=== PATIENT | female | born 1985 | race African-American/Black ===

== ENCOUNTER 2017-02-19 06:19 | Emergency (ER) | payer SELFPAY ==
[2017-02-19] MEDS ORDERED: NORMAL SALINE 1000 ML 1,000 ML IV ONE (07:37)
[2017-02-19] MEDS ORDERED: METOPROLOL TARTRATE 25 MG TABLET PO ONE (07:59)
--- NOTE | 2017-02-19 08:00 | ER Document Report ---
ED Cardiac - General Chief Complaint: Palpitations Stated Complaint: BLOOD PRESSURE PROBLEMS Time Seen by Provider: 02/19/17 07:08 Mode of Arrival: Ambulatory Information source: Patient Notes: Patient is a 31-year-old female with a history of high blood pressure and who presents to the ER today for high blood pressure today and palpitations. Patient states that she was in her shower and that she felt palpitations, her heart racing. Patient states that she has had this before but only when she was . She used to be on blood pressure medication, but does not have a primary care provider, so she is no longer taking any blood pressure medication. She does not remember what this medicine was. She denies any chest pain, shortness of breath, nausea or vomiting. TRAVEL OUTSIDE OF THE [place] IN LAST 30 DAYS: No - Related Data Allergies/Adverse Reactions: No Known Allergies Allergy (Verified 02/19/17 06:25) Past Medical History - General Information source: Patient - Social History Smoking Status: Never Smoker Family History: Reviewed & Not Pertinent Patient has suicidal ideation: No Patient has homicidal ideation: No - Past Medical History Cardiac Medical History: Reports: Hx Hypertension - related Renal/ Medical History: Denies: Hx Peritoneal Dialysis Past Surgical History: Reports: Hx Section - Immunizations Hx Diphtheria, Pertussis, Tetanus Vaccination: Yes Review of Systems - Review of Systems Constitutional: No symptoms reported EENT: No symptoms reported Cardiovascular: See HPI Respiratory: No symptoms reported Gastrointestinal: No symptoms reported Genitourinary: No symptoms reported Female Genitourinary: No symptoms reported Musculoskeletal: No symptoms reported Skin: No symptoms reported Hematologic/Lymphatic: No symptoms reported Neurological/Psychological: No symptoms reported Physical Exam - Vital signs Vitals: Temp Pulse Resp BP Pulse Ox 98.7 F 114 H 18 189/99 H 98 02/19/17 06:25 02/19/17 06:25 02/19/17 06:25 02/19/17 06:25 02/19/17 06:25 - Notes Notes: PHYSICAL EXAMINATION: GENERAL: Well-appearing and in no acute distress. HEAD: Atraumatic, normocephalic. EYES: Pupils equal round and reactive to light, extraocular movements intact, sclera anicteric, conjunctiva are normal. ENT: ear canals without erythema or foreign body, TMs pearly garnica with good bony landmarks, nares patent, oropharynx clear without exudates. Moist mucous membranes. NECK: Normal range of motion, supple without lymphadenopathy LUNGS: CTAB and equal. No wheezes rales or rhonchi. HEART: Tachycardic with regular rhythm without murmurs ABDOMEN: Soft, no tenderness. No guarding, no rebound BACK: no vertebral tenderness, normal ROM GI/: no CVA tenderness EXTREMITIES: Normal range of motion, no pitting edema. No cyanosis. NEUROLOGICAL: Cranial nerves grossly intact. Normal sensory/motor exams. PSYCH: Normal mood, normal affect. SKIN: Warm, Dry, normal turgor, no rashes or lesions noted Course - Re-evaluation Re-evalutation: 02/19/17 15:35 patient was mildly tachycardic on arrival, heart rate did reduce into the 70s after dose of metoprolol. Patient will be started on blood pressure medication. Normal laboratory workup today, normal cardiac enzymes, EKG reveals a normal sinus rhythm without evidence of ischemia or abnormality. - Vital Signs Vital signs: Temp Pulse Resp BP Pulse Ox 98.5 F 80 24 H 154/98 H 100 02/19/17 12:15 02/19/17 12:15 02/19/17 12:15 02/19/17 12:15 02/19/17 12:15 - Laboratory Result Diagrams: 02/19/17 11:21 02/19/17 11:21 Laboratory results interpreted by me: 02/19/17 11:21 WBC 12.1 H Hgb 11.6 L Hct 34.9 L RDW 14.6 H Absolute Neutrophils 9.0 H Discharge - Discharge Clinical Impression: Hypertension Qualifiers: Hypertension type: unspecified Qualified Code(s): I10 - Essential (primary) hypertension Condition: Stable Disposition: HOME, SELF-CARE Instructions: High Blood Pressure, Requiring Treatment ([facility]), Palpitations ( Irregular or Rapid Heartrate) ([facility]) Additional Instructions: Return immediately for any new or worsening symptoms. Follow up with primary care provider, call tomorrow to make followup appointment. Prescriptions: Hydrochlorothiazide 12.5 mg PO BID #30 tablet Referrals: JUANCARLOS BRITTON MD [Primary Care Provider] - Follow up as needed
--- NOTE | 2017-02-19 08:00 | EKG REPORT ---
SEVERITY:- ABNORMAL ECG - SINUS TACHYCARDIA CONSIDER LEFT VENTRICULAR HYPERTROPHY NONSPECIFIC ST-T CHANGES DIFFUSE : Confirmed by: Gunner Solo MD 19-Feb-2017 07:59:12
[2017-02-19 11:32] LABS: ABSOLUTE BASOPHILS # (AUTO) 0.1 10^3/uL (0.0-0.2); ABSOLUTE LYMPHOCYTES (AUTO) 2.6 10^3/uL (0.5-4.7); ABSOLUTE MONOCYTES (AUTO) 0.4 10^3/uL (0.1-1.4); BASOPHILS % (AUTO) 0.4 % (0-2); EOSINOPHILS % (AUTO) 0.2 % (0-6); HEMATOCRIT 34.9 % (36.0-47.0); HEMOGLOBIN 11.6 g/dL (12.0-15.5); HGB HCT DIFFERENCE -0.1; LYMPHOCYTES % (AUTO) 21.4 % (13-45); MEAN CORPUSCULAR HGB CONC 33.3 g/dL (32.0-36.0); MEAN CORPUSCULAR VOLUME 81 fl (80-97); MONOCYTES % (AUTO) 3.2 % (3-13); RED BLOOD COUNT 4.29 10^6/uL (3.72-5.28); RED CELL DISTRIBUTION WIDTH 14.6 % (11.5-14.0); SEGMENTED NEUTROPHILS % (AUTO) 74.8 % (42-78); WHITE BLOOD COUNT 12.1 10^3/uL (4.0-10.5)
[2017-02-19 11:55] LABS: ALANINE AMINOTRANSFERASE 23 U/L (9-52); ALKALINE PHOSPHATASE 84 U/L (38-126); ANION GAP 13 (5-19); ASPARTATE AMINO TRANSFERASE 16 U/L (14-36); BILIRUBIN,DIRECT 0.3 mg/dL (0.0-0.4); BILIRUBIN,TOTAL 0.4 mg/dL (0.2-1.3); BLOOD UREA NITROGEN 10 mg/dL (7-20); CALCIUM 9.2 mg/dL (8.4-10.2); CARBON DIOXIDE 24 mmol/L (22-30); CHLORIDE 107 mmol/L (98-107); CREATININE RESULT 0.58 mg/dL (0.52-1.25); GLUCOSE 90 mg/dL (75-110); POTASSIUM 4.1 mmol/L (3.6-5.0); SODIUM 143.8 mmol/L (137-145); TOTAL PROTEIN 7.1 g/dL (6.3-8.2)
[2017-02-19 12:16] VITALS: BP 154/98
== END 2017-02-19 12:23 | disposition home or self-care (01) ==
LOC: ER 06:19
DX: I10 Essential (primary) hypertension (principal); R00.2 Palpitations; R00.0 Tachycardia, unspecified
CPT/HCPCS: 36415; 80053; 81025; 84484; 85025; 93005; 93010; 99285

== ENCOUNTER 2017-02-20 12:01 | Emergency (ER) | payer SELFPAY ==
--- NOTE | 2017-02-20 13:01 | ER Document Report ---
ED Blood Pressure Problem - General Chief Complaint: High Blood Pressure Stated Complaint: LIGHTHEADED,SHAKY,WEAKNESS Time Seen by Provider: 02/20/17 12:56 Mode of Arrival: Ambulatory Information source: Patient Notes: Patient was seen and evaluated here yesterday. At that time she was diagnosed with uncontrolled hypertension. She was started on hydrochlorothiazide. She states she has taken 2 doses of the medication and today she "does not feel like myself". She was not able to significantly elaborate on this in the states she also did not have an appetite. She denied any nausea or vomiting. She denies any pain. She denied being dizzy. Peers makes symptoms better or worse. They are constant. They are mild to moderate. TRAVEL OUTSIDE OF THE [place] IN LAST 30 DAYS: No - Related Data Allergies/Adverse Reactions: No Known Allergies Allergy (Verified 02/19/17 06:25) Past Medical History - General Information source: Patient - Social History Smoking Status: Current Some Day Smoker Chew tobacco use (# tins/day): No Frequency of alcohol use: Occasional Drug Abuse: None Family History: Reviewed & Not Pertinent Patient has suicidal ideation: No Patient has homicidal ideation: No - Past Medical History Cardiac Medical History: Reports: Hx Hypertension - related Renal/ Medical History: Denies: Hx Peritoneal Dialysis Past Surgical History: Reports: Hx Section - Immunizations Hx Diphtheria, Pertussis, Tetanus Vaccination: Yes Review of Systems - Review of Systems Constitutional: denies: Chills, Fever Cardiovascular: denies: Chest pain, Palpitations Respiratory: denies: Cough, Short of breath Gastrointestinal: denies: Abdominal pain, Vomiting Physical Exam - Vital signs Vitals: Temp Pulse Resp BP Pulse Ox 98.8 F 84 20 168/108 H 100 02/20/17 12:19 02/20/17 12:19 02/20/17 12:19 02/20/17 12:19 02/20/17 12:19 Interpretation: Hypertensive - General General appearance: Appears well In distress: None Course - Re-evaluation Re-evalutation: 02/20/17 12:59 We will change patient's blood pressure medication to Norvasc in case the patient's "not feeling like myself "is due to the hydrochlorothiazide. - Vital Signs Vital signs: Temp Pulse Resp BP Pulse Ox 98.8 F 84 20 168/108 H 100 02/20/17 12:19 02/20/17 12:19 02/20/17 12:19 02/20/17 12:19 02/20/17 12:19 Discharge - Discharge Clinical Impression: Uncontrolled hypertension Medication reaction Qualifiers: Encounter type: initial encounter Qualified Code(s): T88.7XXA - Unspecified adverse effect of drug or medicament, initial encounter Condition: Stable Disposition: HOME, SELF-CARE Instructions: High Blood Pressure ([facility]), High Blood Pressure, Requiring Treatment ([facility]), Calcium Channel Blockers ([facility]) Additional Instructions: Your blood pressure is elevated. Please have this rechecked within 1 week by your doctor. Prescriptions: Amlodipine Besylate [Norvasc 5 mg Tablet] 5 mg PO DAILY #30 tablet Forms: Return to Work Referrals: ROMA ROBLERO MD [COMMUNITY BASED STAFF] - Follow up as needed
[2017-02-20 13:19] VITALS: BP 187/103
== END 2017-02-20 13:28 | disposition home or self-care (01) ==
LOC: ER 12:01
DX: I10 Essential (primary) hypertension (principal); R63.0 Anorexia; T50.2X5A Adverse effect of carbonic-anhydrase inhibitors, benzothiadiazides and other diuretics, initial encounter; F17.200 Nicotine dependence, unspecified, uncomplicated
CPT/HCPCS: 99283

== ENCOUNTER 2017-03-01 16:33 | Emergency (ER) | payer SELFPAY ==
[2017-03-01 17:07] VITALS: BP 147/89
--- NOTE | 2017-03-01 18:39 | ER Document Report ---
ED General - General Chief Complaint: Blood Pressure Problem Stated Complaint: BLOOD PRESSURE PROBLEM Time Seen by Provider: 03/01/17 18:30 Notes: 31-year-old female past medical history high blood pressure here for follow-up and recheck of her blood pressure after she was seen here in late January and switched from hydrochlorothiazide (that made her feel bad) to Norvasc. She states that she feels much better on the Norvasc and does not have any symptoms so she wants to come have her blood pressure checked. She has submitted her paperwork to establish care with a primary care physician but has not yet completed the whole process. TRAVEL OUTSIDE OF THE [place] IN LAST 30 DAYS: No - Related Data Allergies/Adverse Reactions: No Known Allergies Allergy (Verified 03/01/17 16:35) Past Medical History - Social History Smoking Status: Never Smoker Chew tobacco use (# tins/day): No Frequency of alcohol use: Occasional Drug Abuse: None Family History: Reviewed & Not Pertinent Patient has suicidal ideation: No Patient has homicidal ideation: No - Past Medical History Cardiac Medical History: Reports: Hx Hypertension - related Renal/ Medical History: Denies: Hx Peritoneal Dialysis Past Surgical History: Reports: Hx Section - Immunizations Hx Diphtheria, Pertussis, Tetanus Vaccination: Yes Review of Systems - Review of Systems Notes: See history of present illness for pertinent positive review of systems; otherwise all review of systems have been reviewed and are negative Physical Exam - Vital signs Vitals: Temp Pulse Resp BP Pulse Ox 97.9 F 100 12 147/89 H 100 03/01/17 17:05 03/01/17 17:05 03/01/17 17:05 03/01/17 17:05 03/01/17 17:05 - Notes Notes: PHYSICAL EXAMINATION: GENERAL: Well-appearing and in no acute distress. HEAD: Atraumatic, normocephalic. EYES: Pupils equal round and reactive to light, extraocular movements intact, sclera anicteric, conjunctiva are normal. ENT: nares patent, Moist mucous membranes. NECK: Normal range of motion, supple without lymphadenopathy LUNGS: CTAB and equal. No wheezes rales or rhonchi. HEART: Regular rate and rhythm without murmurs ABDOMEN: Soft, no tenderness. No guarding, no rebound EXTREMITIES: Normal range of motion, no pitting edema. No cyanosis. NEUROLOGICAL: Cranial nerves grossly intact. Normal sensory/motor exams. PSYCH: Normal mood, normal affect. SKIN: Warm, Dry, normal turgor, no rashes or lesions noted Course - Re-evaluation Re-evalutation: 03/01/17 18:37 MEDICAL DECISION MAKING: Blood pressure has improved compared to the last reading from prior ED visit Instructed patient to continue her blood pressure medication and follow-up PCP few days Patient understands and agrees to the plan of care - Vital Signs Vital signs: Temp Pulse Resp BP Pulse Ox 97.9 F 100 12 147/89 H 100 03/01/17 17:05 03/01/17 17:05 03/01/17 17:05 03/01/17 17:05 03/01/17 17:05 Discharge - Discharge Clinical Impression: Hypertension Qualifiers: Hypertension type: unspecified Qualified Code(s): I10 - Essential (primary) hypertension Condition: Good Disposition: HOME, SELF-CARE Additional Instructions: Continue your blood pressure medications. You were seen in the emergency department at [facility]. Please followup with your primary physician in the next few days for further management/evaluation. Please return to the emergency department for worsening of symptoms or any symptom that you deem to be concerning or life-threatening. Thank you for allowing us to be part of your care. Forms: Elevated Blood Pressure
== END 2017-03-01 18:41 | disposition home or self-care (01) ==
LOC: ER 16:33
DX: I10 Essential (primary) hypertension (principal); Z79.899 Other long term (current) drug therapy
CPT/HCPCS: 99283

== ENCOUNTER 2017-03-22 15:26 | Emergency (ER) | payer SELFPAY ==
[2017-03-22 15:41] VITALS: BP 148/91
--- NOTE | 2017-03-22 16:00 | ER Document Report ---
ED General - General Chief Complaint: Medication Refill Stated Complaint: MEDICATION REFILL Time Seen by Provider: 03/22/17 15:50 Mode of Arrival: Ambulatory Information source: Patient Notes: Patient is a 31-year-old obese black female comes emergency room with request for refill of hypertension medication. Patient was seen in January for original blood pressure problem where she had been placed on hydrochlorothiazide and she was feeling weird with that so she came in she was changed in January 2 amlodipine 5 mg daily. She will return in February just for blood pressure rechecked to make sure that amlodipine is working physician saw her at that point documented that she was doing much better on the Norvasc and that she had started the paperwork for her primary care physician but has not finished yet. There were no refills at that time and she comes back today because [facility] care in her health. Patient denies any current problems no shortness of breath no swelling TRAVEL OUTSIDE OF THE [place] IN LAST 30 DAYS: No - HPI Patient complains to provider of: Medication refill Onset: Other - 1 month Onset/Duration: Constant Quality of pain: No pain Severity: None Pain Level: 0 Associated symptoms: None Exacerbated by: Denies Relieved by: Denies Similar symptoms previously: Yes Recently seen / treated by doctor: Yes - Related Data Allergies/Adverse Reactions: No Known Allergies Allergy (Verified 03/01/17 16:35) Past Medical History - General Information source: Patient - Social History Smoking Status: Never Smoker Cigarette use (# per day): No Chew tobacco use (# tins/day): No Smoking Education Provided: No Frequency of alcohol use: None Drug Abuse: None Family History: Reviewed & Not Pertinent Patient has suicidal ideation: No Patient has homicidal ideation: No - Past Medical History Cardiac Medical History: Reports: Hx Hypertension - related Renal/ Medical History: Denies: Hx Peritoneal Dialysis Past Surgical History: Reports: Hx Section - Immunizations Hx Diphtheria, Pertussis, Tetanus Vaccination: Yes Review of Systems - Review of Systems Constitutional: No symptoms reported EENT: No symptoms reported Cardiovascular: No symptoms reported Respiratory: No symptoms reported Gastrointestinal: No symptoms reported Genitourinary: No symptoms reported Female Genitourinary: No symptoms reported Musculoskeletal: No symptoms reported Skin: No symptoms reported Hematologic/Lymphatic: No symptoms reported Neurological/Psychological: No symptoms reported -: Yes All other systems reviewed and negative Physical Exam - Vital signs Vitals: Temp Pulse Resp BP Pulse Ox 98.5 F 85 20 148/91 H 100 03/22/17 15:41 03/22/17 15:41 03/22/17 15:41 03/22/17 15:41 03/22/17 15:41 Interpretation: Hypertensive - General General appearance: Appears well In distress: None - Respiratory Respiratory status: No respiratory distress Chest status: Nontender Breath sounds: Normal - Cardiovascular Rhythm: Regular Heart sounds: Normal auscultation Murmur: No - Neurological Neuro grossly intact: Yes Cognition: Normal Orientation: AAOx4 Marco A Coma Scale Eye Opening: Spontaneous Marco A Coma Scale Verbal: Oriented Blakeslee Coma Scale Motor: Obeys Commands Marco A Coma Scale Total: 15 Speech: Normal Course - Vital Signs Vital signs: Temp Pulse Resp BP Pulse Ox 98.5 F 85 20 148/91 H 100 03/22/17 15:41 03/22/17 15:41 03/22/17 15:41 03/22/17 15:41 03/22/17 15:41 - Transfer of Care Notes: 03/22/17 15:59 As stated [facility] for to establish with them for her medical needs. Discharge - Discharge Clinical Impression: Medication refill Condition: Good Additional Instructions: Since you are here for medication refill and to inform you that really need to keep the appointment with the [facility] to establish for your long-term medical needs and prescriptions. Should you have any concerns or problems unable to do so return to ER for recheck. Prescriptions: Amlodipine Besylate 10 mg PO DAILY #30 tab Forms: Elevated Blood Pressure
== END 2017-03-22 16:10 | disposition home or self-care (01) ==
LOC: ER 15:26
DX: Z76.0 Encounter for issue of repeat prescription (principal); I10 Essential (primary) hypertension
CPT/HCPCS: 99281

== ENCOUNTER 2017-04-19 02:31 | Emergency (ER) | payer SELFPAY ==
[2017-04-19 04:35] VITALS: BP 139/90
--- NOTE | 2017-04-19 06:33 | ER Document Report ---
ED General - General Chief Complaint: Chest Tightness Stated Complaint: CHEST PAIN Time Seen by Provider: 04/19/17 06:07 Mode of Arrival: Ambulatory Information source: Patient Notes: 31-year-old female presents with complaints of sharp chest pain in the left upper chest intermittently. Patient notes she has had these symptoms in the past, admits to anxiety, notes she has tingling of lips fingertips when these occur. She noticed the sharp pain lasts only a few seconds. She denies any DVT or PE risk factors. She denies any cough. She denies any shortness of breath. TRAVEL OUTSIDE OF THE [place] IN LAST 30 DAYS: No - HPI Onset: Other Onset/Duration: Intermittent Quality of pain: Sharp Severity: Mild Pain Level: 1 Associated symptoms: Chest pain Exacerbated by: Denies Relieved by: Denies Similar symptoms previously: Yes Recently seen / treated by doctor: No - Related Data Allergies/Adverse Reactions: No Known Allergies Allergy (Verified 04/19/17 02:40) Past Medical History - Social History Smoking Status: Never Smoker Cigarette use (# per day): No Chew tobacco use (# tins/day): No Smoking Education Provided: No Frequency of alcohol use: None Drug Abuse: None Family History: Reviewed & Not Pertinent Patient has suicidal ideation: No Patient has homicidal ideation: No - Past Medical History Cardiac Medical History: Reports: Hx Hypertension - related Renal/ Medical History: Denies: Hx Peritoneal Dialysis Past Surgical History: Reports: Hx Section - Immunizations Hx Diphtheria, Pertussis, Tetanus Vaccination: Yes Review of Systems - Review of Systems Notes: REVIEW OF SYSTEMS: CONSTITUTIONAL : Denies fever, chills, or sweats. Denies recent illness. EENT: Denies eye, ear, throat, or mouth pain or symptoms. Denies nasal or sinus congestion or discharge. Denies throat, tongue, or mouth swelling or difficulty swallowing. CARDIOVASCULAR: Admits to chest pain RESPIRATORY: Denies cough, cold, or chest congestion. Denies shortness of breath, difficulty breathing, or wheezing. GASTROINTESTINAL: Denies abdominal pain or distention. Denies nausea, vomiting , or diarrhea. Denies blood in vomitus, stools, or per rectum. Denies black, tarry stools. Denies constipation. GENITOURINARY: Denies difficulty urinating, painful urination, burning, frequency, blood in urine, or discharge. FEMALE GENITOURINARY: Denies vaginal bleeding, heavy or abnormal periods, irregular periods. Denies vaginal discharge or odor. MUSCULOSKELETAL: Denies back or neck pain or stiffness. Denies joint pain or swelling. SKIN: Denies rash, lesions or sores. HEMATOLOGIC : Denies easy bruising or bleeding. LYMPHATIC: Denies swollen, enlarged glands. NEUROLOGICAL: Denies confusion or altered mental status. Denies passing out or loss of consciousness. Denies dizziness or lightheadedness. Denies headache. Denies weakness or paralysis or loss of use of either side. Denies problems with gait or speech. Denies sensory loss, numbness, or tingling. Denies seizures. PSYCHIATRIC: Admits to anxiety n. ALL OTHER SYSTEMS REVIEWED AND NEGATIVE. PHYSICAL EXAMINATION: GENERAL: Well-appearing, well-nourished and in no acute distress. HEAD: Atraumatic, normocephalic. EYES: Pupils equal round and reactive to light, extraocular movements intact, conjunctiva are normal. ENT: Nares patent, oropharynx clear without exudates. Moist mucous membranes. NECK: Normal range of motion, supple without lymphadenopathy LUNGS: Breath sounds clear to auscultation bilaterally and equal. No wheezes rales or rhonchi. HEART: Regular rate and rhythm without murmurs ABDOMEN: Soft, nontender, nondistended abdomen. No guarding, no rebound. No masses appreciated. Female : deferred Musculoskeletal: Normal range of motion, no pitting or edema. No cyanosis. NEUROLOGICAL: Cranial nerves grossly intact. Normal speech, normal gait. Normal sensory, motor exams PSYCH: Normal mood, normal affect. SKIN: Warm, Dry, normal turgor, no rashes or lesions noted. Dictation was performed using [employer] voice recognition software Physical Exam - Vital signs Vitals: Temp Pulse Resp BP Pulse Ox 98.8 F 100 18 136/80 H 100 04/19/17 02:43 04/19/17 02:43 04/19/17 02:43 04/19/17 02:43 04/19/17 02:43 Course - Re-evaluation Re-evalutation: 04/19/17 09:31 EKG noted no significant abnormality patient looks extremely well, we discussed her pain and it appears to be noncardiac in nature, patient is convinced that this is secondary to anxiety and I agree with her I will given very strict return precautions After performing a Medical Screening Examination, I estimate there is LOW risk for RUPTURED ESOPHAGUS, PNEUMOTHORAX, PULMONARY EMBOLISM, ACUTE CORONARY SYNDROME, OR THORACIC AORTIC DISSECTION, thus I consider the discharge disposition reasonable. I have reevaluated this patient multiple times and no significant life threatening changes are noted. The patient and I have discussed the diagnosis and risks, and we agree with discharging home with close follow-up. We also discussed returning to the Emergency Department immediately if new or worsening symptoms occur. We have discussed the symptoms which are most concerning (e.g., bloody sputum, worsening pain or shortness of breath) that necessitate immediate return. - Vital Signs Vital signs: Temp Pulse Resp BP Pulse Ox 98.5 F 79 16 139/90 H 100 04/19/17 04:00 04/19/17 04:00 04/19/17 04:00 04/19/17 04:00 04/19/17 04:00 - EKG Interpretation by Me EKG shows normal: Sinus rhythm, Posey, Intervals, QRS Complexes Discharge - Discharge Clinical Impression: Anxiety Chest pain Qualifiers: Chest pain type: unspecified Qualified Code(s): R07.9 - Chest pain, unspecified Condition: Stable Disposition: HOME, SELF-CARE Instructions: Chest Pain of Unclear Cause ([facility]) Additional Instructions: Follow up with your physician tomorrow for further care or return to the ED IMMEDIATELY if symptoms worsen or new concerns occur. If you cannot afford to follow up with your primary care physician a list of low cost clinics have been provided at the end of your discharge papers as well. Prescriptions: Amlodipine Besylate 10 mg PO DAILY #30 tab Forms: Return to Work
--- NOTE | 2017-04-19 07:40 | EKG REPORT ---
SEVERITY:- OTHERWISE NORMAL ECG - SINUS TACHYCARDIA : Confirmed by: Ni Blanco MD 19-Apr-2017 07:40:25
== END 2017-04-19 06:53 | disposition home or self-care (01) ==
LOC: ER 02:31
DX: R07.9 Chest pain, unspecified (principal); F41.9 Anxiety disorder, unspecified
CPT/HCPCS: 93005; 93010; 99285

== ENCOUNTER 2017-05-26 11:35 | Emergency (ER) | payer SELFPAY ==
--- NOTE | 2017-05-26 12:32 | ER Document Report ---
ED Medical Screen (RME) - General Chief Complaint: Chest Pain Stated Complaint: CHEST PAIN Time Seen by Provider: 05/26/17 12:32 Notes: Patient says that her chest was feeling "weird" and that she was having cramps across the front of her chest this morning. She took her blood pressure and it was 167/190. We pointed out to her that that is not a accurate reading. Patient says she has had similar symptoms to this in the past and been diagnosed with anxiety. Since January, the patient has been here 6 times. All of them for similar symptoms, the first being for her heart racing. She has been documented to have a low grade tachycardia on previous visits. Has never had her thyroid checked. Does have a history of high blood pressure on amlodipine 10 mg. Denies use of any illicit drugs, or [id number] medications. Heart rate by me at triage is 100. Heart sounds are normal. No murmur heard. TRAVEL OUTSIDE OF THE [place] IN LAST 30 DAYS: No - Related Data Allergies/Adverse Reactions: No Known Allergies Allergy (Verified 05/26/17 11:38) Past Medical History - Past Medical History Cardiac Medical History: Reports: Hx Hypertension - related Renal/ Medical History: Denies: Hx Peritoneal Dialysis Past Surgical History: Reports: Hx Section - Immunizations Hx Diphtheria, Pertussis, Tetanus Vaccination: Yes Physical Exam - Vital signs Vitals: Temp Pulse Resp BP Pulse Ox 99.4 F 109 H 17 148/80 H 100 05/26/17 11:49 05/26/17 11:49 05/26/17 11:49 05/26/17 11:49 05/26/17 11:49 Course - Vital Signs Vital signs: Temp Pulse Resp BP Pulse Ox 99.4 F 109 H 17 148/80 H 100 05/26/17 11:49 05/26/17 11:49 05/26/17 11:49 05/26/17 11:49 05/26/17 11:49
--- NOTE | 2017-05-26 13:12 | ER Document Report ---
ED General - General Chief Complaint: Chest Pain Stated Complaint: CHEST PAIN Time Seen by Provider: 05/26/17 12:32 Mode of Arrival: Ambulatory Information source: Patient TRAVEL OUTSIDE OF THE [place] IN LAST 30 DAYS: No - HPI Notes: 31-year-old female presents today with complaints of having high blood pressure when she checked her blood pressure at home as well as "feeling weird in my chest" that started today after she checked her blood pressure at home where the diastolic number was at 180. Patient states this is what made her come to the emergency room today States episode lasted for about 10 minutes and went away. Denies any radiation of pain. States pain was just "weird" unable to describe if it was sharp, shooting, throbbing achy. Patient has been sexually active with her boyfriend, they do not use any barrier methods or prevention. Patient has a long-standing history of hypertension and anxiety, does take hypertensive medications at home as directed, does not take any anxiety medications at home. Patient is unsure if her blood pressure cuff is accurate because she states it was "small". she does have a history of anxiety, patient does not have a primary care doctor or a therapist. Denies any suicidal or homicidal ideation. denies fevers, chills,palpitations, shortness of breath, dyspnea, nausea, vomiting, diarrhea, abdominal pain, hematuria, blurred vision, double vision, loss of vision, speech changes, LH, dizziness, syncope, headaches, wheezing, ST, URI, neck pain, weakness, bowel or bladder dysfunction, saddle anesthesia, numbness or tingling in bilateral upper or lower extremities equally, muscle paralysis, weakness in bilateral upper or lower extremities equally or rash. Denies IV drug use. - Related Data Allergies/Adverse Reactions: No Known Allergies Allergy (Verified 05/26/17 11:38) Past Medical History - General Information source: Patient - Social History Smoking Status: Never Smoker Frequency of alcohol use: None Drug Abuse: None Family History: Reviewed & Not Pertinent Patient has suicidal ideation: No Patient has homicidal ideation: No - Past Medical History Cardiac Medical History: Reports: Hx Hypertension - related Renal/ Medical History: Denies: Hx Peritoneal Dialysis Past Surgical History: Reports: Hx Section - Immunizations Hx Diphtheria, Pertussis, Tetanus Vaccination: Yes Review of Systems - Review of Systems Notes: REVIEW OF SYSTEMS: CONSTITUTIONAL : Denies fever, chills, or sweats. Denies recent illness. EENT: Denies eye, ear, throat, or mouth pain or symptoms. Denies nasal or sinus congestion or discharge. Denies throat, tongue, or mouth swelling or difficulty swallowing. CARDIOVASCULAR: reports chest pain. Denies palpitations or racing or irregular heart beat. Denies ankle edema. RESPIRATORY: Denies cough, cold, or chest congestion. Denies shortness of breath, difficulty breathing, or wheezing. GASTROINTESTINAL: Denies abdominal pain or distention. Denies nausea, vomiting , or diarrhea. Denies blood in vomitus, stools, or per rectum. Denies black, tarry stools. Denies constipation. GENITOURINARY: Denies difficulty urinating, painful urination, burning, frequency, blood in urine, or discharge. FEMALE GENITOURINARY: Denies vaginal bleeding, heavy or abnormal periods, irregular periods. Denies vaginal discharge or odor. MUSCULOSKELETAL: Denies back or neck pain or stiffness. Denies joint pain or swelling. SKIN: Denies rash, lesions or sores. HEMATOLOGIC : Denies easy bruising or bleeding. LYMPHATIC: Denies swollen, enlarged glands. NEUROLOGICAL: Denies confusion or altered mental status. Denies passing out or loss of consciousness. Denies dizziness or lightheadedness. Denies headache. Denies weakness or paralysis or loss of use of either side. Denies problems with gait or speech. Denies sensory loss, numbness, or tingling. Denies seizures. PSYCHIATRIC: reports anxiety or stress. Denies depression, suicidal ideation, or homicidal ideation. ALL OTHER SYSTEMS REVIEWED AND NEGATIVE. Physical Exam - Vital signs Vitals: Temp Pulse Resp BP Pulse Ox 99.4 F 109 H 17 148/80 H 100 05/26/17 11:49 05/26/17 11:49 05/26/17 11:49 05/26/17 11:49 05/26/17 11:49 - Notes Notes: PHYSICAL EXAMINATION: GENERAL: Well-appearing, well-nourished and in no acute distress. HEAD: Atraumatic, normocephalic. EYES: Pupils equal round and reactive to light, extraocular movements intact, conjunctiva are normal. ENT: Nares patent, oropharynx clear without exudates. Moist mucous membranes. NECK: Normal range of motion, supple without lymphadenopathy LUNGS: Breath sounds clear to auscultation bilaterally and equal. No wheezes rales or rhonchi. HEART: Regular rate and rhythm without murmurs ABDOMEN: Soft, nontender, nondistended abdomen. No guarding, no rebound. No masses appreciated. Female : deferred Musculoskeletal: Normal range of motion, no pitting or edema. No cyanosis. NEUROLOGICAL: Cranial nerves grossly intact. Normal speech, normal gait. Normal sensory, motor exams PSYCH: teary-eyed and appears anxious. Normal mood, normal affect. SKIN: Warm, Dry, normal turgor, no rashes or lesions noted. Dictation was performed using [employer] voice recognition software Course - Re-evaluation Re-evalutation: Reevaluated patient, patient states she felt better. CBC unremarkable for any leukocytosis, cardiac enzymes are negative. CMP is unremarkable. EKG showed tachycardic at 113 bpm, significant changes from previous EKG. Patient was very emotional when talking. Discussed anxiety reducing techniques. Patient is unable to be seen by her PCP this time due to having issues with her insurance. Discussed with patient to utilize outpatient therapy resources in the community that is free. Research study with multiple places with their address and number provided. Patient does show to have nitrates in her urine, will do further evaluation to evaluate for GC, wet mount. Advised patient to not drink alcohol or take his medication as it will make her feel very ill. Treat with Flagyl for bacterial vaginosis. Follow-up with PCP at the [facility] or return to the emergency room if symptoms become worse. - Vital Signs Vital signs: Temp Pulse Resp BP Pulse Ox 99.1 F 72 16 146/85 H 100 05/26/17 15:15 05/26/17 15:15 05/26/17 15:15 05/26/17 15:15 05/26/17 15:15 - Laboratory Result Diagrams: 05/26/17 12:57 05/26/17 12:57 Laboratory results interpreted by me: 05/26/17 05/26/17 12:57 12:57 WBC 11.3 H Hgb 11.8 L Hct 35.6 L RDW 14.4 H Urine Nitrite POSITIVE H Urine Urobilinogen 2.0 H - EKG Interpretation by Me Rate: Tachycardia Rhythm: NSR Additional EKG results interpreted by me: 05/26/17 15:[address] Zee, ER attending. EKG does not show any significant changes from previous EKGs, one that was done in March 1999 14,026 as well as one that was done one year prior. There is nonspecific ST segment abnormalities. No STEMI. Discharge - Discharge Clinical Impression: Bacterial vaginosis, Anxiety Hypertension Qualifiers: Hypertension type: essential hypertension Qualified Code(s): I10 - Essential ( primary) hypertension Condition: Good Disposition: HOME, SELF-CARE Instructions: Anxiety ([facility]), High Blood Pressure ([facility]), Vaginosis, Bacterial ( [facility]) Additional Instructions: VAGINITIS: Your exam shows that you have vaginitis, a vaginal infection. The infection can be caused by a many different organisms, including trichomonas or Gardnerella. The usual symptoms are vaginal irritation and discharge. The treatment is usually antibiotics such as Flagyl. Laboratory tests can determine which germ is responsible. Use the medication as prescribed. Because this infection can be transmitted sexually, your sexual partner may need to be checked and treated also. If your physician has not discussed this with you, please check before resuming sexual relations. If a culture shows gonorrhea or chlamydia, the infection must be reported to the health department. Call the doctor if you develop pelvic pain, fever, or problems with urination, or if you don't improve as expected. VAGINOSIS, BACTERIAL: Your exam shows you have bacterial vaginosis. This condition is due to an overgrowth of bacteria in the vagina. Symptoms may include vaginal itching or pain, a smelly discharge, and sometimes burning with urination. Normally this is not transmitted by sexual contact. Vaginosis can be treated with oral or topical antibiotics. Metronidazole ( Flagyl) pills are usually effective. Topical vaginal creams include Cleocin and Metro-Gel. You should avoid sexual contact until your symptoms are all better. Call the doctor if you develop pelvic pain, fever, or problems with urination, or if you don't improve as expected. VAGINAL YEAST INFECTION: METRONIDAZOLE: Metronidazole (Flagyl) has been prescribed. This medication is used to kill a type of bacteria called anaerobes, and protozoan parasites such as trichomonas and Giardia. Flagyl often causes a metallic taste in the mouth and mild nausea. Do not use alcohol in any form with Flagyl (including alcohol in medication elixirs). Flagyl interacts with alcohol to cause flushing, palpitations, headache, stomach cramps, and vomiting. Do not use Flagyl if you are taking Antabuse (disulfiram). Call the doctor at once if you develop rash, shortness of breath, itching, or lightheadedness. FOLLOW-UP CARE: If you have been referred to a physician for follow-up care, call the physician s office for an appointment as you were instructed or within the next two days. If you experience worsening or a significant change in your symptoms, notify the physician immediately or return to the Emergency Department at any time for re-evaluation. Anxiety The physician feels that some of your health problems are being caused by anxiety. Anxiety affects your health in many ways. Anxiety alone can cause palpitations, sweats, chest pains, abdominal pains, shortness of breath, and headaches. It contributes to ulcer disease, high blood pressure, irritable bowel syndrome, and has been shown to cause flare-ups of many other diseases. Anxiety is not a simple disorder to treat. If the anxiety is due to recent life stresses, you may simply need time to "work through" the changes. If the anxiety is due to an underlying unhappiness with yourself or due to psychiatric disturbance, professional help will be needed. Your physician can refer you for further help if needed. Anti-anxiety medication is occasionally given if the stress is acute or if you are having trouble sleeping. Chronic or frequent use of these medications is not a good idea because the body becomes reliant on it, preventing you from dealing with life's normal stresses. Follow-up with your PCP or follow-up with community care clinic within 1 week. If symptoms become worse return to the emergency room as soon as possible. Do not drink alcohol while taking Flagyl as it will make you feel violently ill. Reach Out to community therapy resources that was provided to you with name, number and address within this week. Return immediately for any new or worsening symptoms. Follow up with primary care provider, call tomorrow to make followup appointment. Prescriptions: Amlodipine Besylate 10 mg PO DAILY #30 tab Metronidazole 500 mg PO BID #14 tablet Referrals: MARCUS PINK MD [COMMUNITY BASED STAFF] - Follow up in 3-5 days AARTI DONOHUE MD [EMERITUS] - Follow up in 3-5 days
[2017-05-26 13:18] LABS: ABSOLUTE BASOPHILS # (AUTO) 0.1 10^3/uL (0.0-0.2); ABSOLUTE EOSINOPHILS # (AUTO) 0.1 10^3/uL (0.0-0.6); ABSOLUTE LYMPHOCYTES (AUTO) 2.6 10^3/uL (0.5-4.7); ABSOLUTE MONOCYTES (AUTO) 0.6 10^3/uL (0.1-1.4); ABSOLUTE NEUT (AUTO) 7.9 10^3/uL (1.7-8.2); BASOPHILS % (AUTO) 0.7 % (0-2); EOSINOPHILS % (AUTO) 0.8 % (0-6); HEMATOCRIT 35.6 % (36.0-47.0); HEMOGLOBIN 11.8 g/dL (12.0-15.5); LYMPHOCYTES % (AUTO) 22.9 % (13-45); MEAN CORPUSCULAR HEMOGLOBIN 27.4 pg (27.0-33.4); MEAN CORPUSCULAR HGB CONC 33.1 g/dL (32.0-36.0); MEAN CORPUSCULAR VOLUME 83 fl (80-97); MONOCYTES % (AUTO) 5.4 % (3-13); PLATELET COUNT 316 10^3/uL (150-450); RED CELL DISTRIBUTION WIDTH 14.4 % (11.5-14.0); SEGMENTED NEUTROPHILS % (AUTO) 70.2 % (42-78); TOTAL CELLS COUNTED % (AUTO) 100 %; WHITE BLOOD COUNT 11.3 10^3/uL (4.0-10.5)
[2017-05-26 13:31] LABS: APPEARANCE,URINE SLIGHTLY-CLOUDY; BILIRUBIN,URINE NEGATIVE (NEGATIVE); COLOR,URINE YELLOW; GLUCOSE, URINE NEGATIVE (NEGATIVE); KETONES,URINE NEGATIVE (NEGATIVE); LEUKOCYTE ESTERASE,URINE NEGATIVE (NEGATIVE); NITRITE,URINE POSITIVE (NEGATIVE); PROTEIN,URINE NEGATIVE (NEGATIVE); URINE SPECIFIC GRAVITY 1.019
[2017-05-26 13:37] LABS: URINE AMPHETAMINES SCREEN NEGATIVE; URINE BARBITURATES SCREEN NEGATIVE; URINE BENZODIAZEPINES SCREEN NEGATIVE; URINE COCAINE SCREEN NEGATIVE; URINE MARIJUANA (THC) SCREEN NEGATIVE; URINE METHADONE SCREEN NEGATIVE; URINE PHENCYCLIDINE SCREEN NEGATIVE
[2017-05-26 13:38] LABS: ALANINE AMINOTRANSFERASE 16 U/L (9-52); ALBUMIN 4.5 g/dL (3.5-5.0); ALKALINE PHOSPHATASE 86 U/L (38-126); ANION GAP 12 (5-19); ASPARTATE AMINO TRANSFERASE 26 U/L (14-36); BILIRUBIN,DIRECT 0.1 mg/dL (0.0-0.4); BILIRUBIN,TOTAL 0.4 mg/dL (0.2-1.3); BLOOD UREA NITROGEN 8 mg/dL (7-20); CALCIUM 9.6 mg/dL (8.4-10.2); CARBON DIOXIDE 25 mmol/L (22-30); CHLORIDE 106 mmol/L (98-107); GLUCOSE 89 mg/dL (75-110); POTASSIUM 3.6 mmol/L (3.6-5.0); SODIUM 142.6 mmol/L (137-145); TOTAL PROTEIN 7.9 g/dL (6.3-8.2)
[2017-05-26 13:49] LABS: CREATINE KINASE MB < 0.22 ng/mL (<4.55); TROPONIN I < 0.012 ng/mL
[2017-05-26 13:53] LABS: FREE T4 (FREE THYROXINE) 1.23 ng/dL (0.78-2.19)
--- NOTE | 2017-05-26 13:58 | RADIOLOGY REPORT (SQ) ---
EXAM DESCRIPTION: CHEST PA/LAT COMPLETED DATE/TIME: 05/26/2017 1:50 pm REASON FOR STUDY: Chest discomfort and tachycardia COMPARISON: None. EXAM PARAMETERS: NUMBER OF VIEWS: two views TECHNIQUE: Digital Frontal and Lateral radiographic views of the chest acquired. RADIATION DOSE: NA LIMITATIONS: none FINDINGS: LUNGS AND PLEURA: No opacities, masses or pneumothorax. No pleural effusion. MEDIASTINUM AND HILAR STRUCTURES: No masses or contour abnormalities. HEART AND VASCULAR STRUCTURES: Heart normal size. No evidence for failure. BONES: No acute findings. HARDWARE: None in the chest. OTHER: No other significant finding. IMPRESSION: NO SIGNIFICANT RADIOGRAPHIC FINDING IN THE CHEST. TECHNICAL DOCUMENTATION: JOB ID: [id number] [employer]- All Rights Reserved Reading location - IP/workstation name: [email or web address]
[2017-05-26 14:07] LABS: THYROID STIMULATING HORMONE 1.13 uIU/mL (0.47-4.68)
[2017-05-26 14:31] LABS: BACTERIA (WET MOUNT) 3+ BACTERIA SEEN; EPITHELIALS (WET MOUNT) 4+ EPITHELIALS SEEN; T.VAGINALIS (WET MOUNT) NO TRICHOMONAS SEEN; WBCS (WET MOUNT) RARE WBCS SEEN; YEAST (WET MOUNT) NO YEAST SEEN
[2017-05-26 15:19] VITALS: BP 146/85
--- NOTE | 2017-05-26 15:38 | EKG REPORT ---
SEVERITY:- ABNORMAL ECG - SINUS TACHYCARDIA NONSPECIFIC T ABNORMALITIES, DIFFUSE LEADS : Confirmed by: Gunner Solo MD 26-May-2017 15:37:41
[2017-05-26 15:57] LABS: CHLAM PCR NOT DETECTED (NOT DETECT); GON PCR NOT DETECTED (NOT DETECT)
== END 2017-05-26 15:40 | disposition home or self-care (01) ==
LOC: ER 11:35
DX: F41.9 Anxiety disorder, unspecified (principal); N76.0 Acute vaginitis; B96.89 Other specified bacterial agents as the cause of diseases classified elsewhere; R07.9 Chest pain, unspecified; I10 Essential (primary) hypertension; Z79.899 Other long term (current) drug therapy
CPT/HCPCS: 36415; 71046; 80053; 80307; 81001; 82553; 84439; 84443; 84484; 84703; 85025; 87210; 87491; 87591; 93005; 93010; 99285

== ENCOUNTER 2017-06-27 16:31 | Emergency (ER) | payer SELFPAY ==
[2017-06-27 16:35] VITALS: BP 148/90
--- NOTE | 2017-06-27 17:01 | ER Document Report ---
ED General - General Chief Complaint: Medication Refill Stated Complaint: BLOOD PRESSURE/MEDICATION REFILL Time Seen by Provider: 06/27/17 16:48 Mode of Arrival: Ambulatory Information source: Patient Notes: Patient is a 31-year-old female with hypertension who presents to the ER today for refill on her amlodipine 10 mg. Patient states that she has half a tablet left and usually takes 1 tablet at night. She does have an appointment on 18 July with [facility]. Patient also complains of anxiety, stating that she "just feels heavy all over." She states that this is a known diagnosis but that she does not have anything for it. She denies any chest pain , shortness of breath, headache, blurred vision. Her blood pressure on arrival is 148/90. TRAVEL OUTSIDE OF THE [place] IN LAST 30 DAYS: No - Related Data Allergies/Adverse Reactions: No Known Allergies Allergy (Verified 06/27/17 16:31) Past Medical History - General Information source: Patient - Social History Smoking Status: Unknown if Ever Smoked Family History: Reviewed & Not Pertinent - Past Medical History Cardiac Medical History: Reports: Hx Hypertension - related Renal/ Medical History: Denies: Hx Peritoneal Dialysis Past Surgical History: Reports: Hx Section - Immunizations Hx Diphtheria, Pertussis, Tetanus Vaccination: Yes Review of Systems - Review of Systems Constitutional: No symptoms reported EENT: No symptoms reported Cardiovascular: See HPI Respiratory: No symptoms reported Gastrointestinal: No symptoms reported Genitourinary: No symptoms reported Female Genitourinary: No symptoms reported Musculoskeletal: No symptoms reported Skin: No symptoms reported Hematologic/Lymphatic: No symptoms reported Neurological/Psychological: No symptoms reported Physical Exam - Vital signs Vitals: Temp Pulse Resp BP Pulse Ox 97.9 F 91 18 148/90 H 100 06/27/17 16:34 06/27/17 16:34 06/27/17 16:34 06/27/17 16:34 06/27/17 16:34 - Notes Notes: PHYSICAL EXAMINATION: GENERAL: Well-appearing and in no acute distress. HEAD: Atraumatic, normocephalic. EYES: Pupils equal round and reactive to light, extraocular movements intact, sclera anicteric, conjunctiva are normal. ENT: ear canals without erythema or foreign body, TMs pearly garnica with good bony landmarks, nares patent, oropharynx clear without exudates. Moist mucous membranes. NECK: Normal range of motion, supple without lymphadenopathy LUNGS: CTAB and equal. No wheezes rales or rhonchi. HEART: Regular rate and rhythm without murmurs ABDOMEN: Soft, no tenderness. No guarding, no rebound BACK: no vertebral tenderness, normal ROM GI/: no CVA tenderness EXTREMITIES: Normal range of motion, no pitting edema. No cyanosis. NEUROLOGICAL: Cranial nerves grossly intact. Normal sensory/motor exams. PSYCH: Normal mood, normal affect. SKIN: Warm, Dry, normal turgor, no rashes or lesions noted Course - Re-evaluation Re-evalutation: 06/27/17 18:48 I did refill blood pressure medication today as well as provide her with a trial of Vistaril to see if that helps with her anxiety. - Vital Signs Vital signs: Temp Pulse Resp BP Pulse Ox 97.9 F 91 18 148/90 H 100 06/27/17 16:34 06/27/17 16:34 06/27/17 16:34 06/27/17 16:34 06/27/17 16:34 Discharge - Discharge Clinical Impression: Anxiety HTN (hypertension) Qualifiers: Hypertension type: essential hypertension Qualified Code(s): I10 - Essential ( primary) hypertension Condition: Stable Disposition: HOME, SELF-CARE Additional Instructions: Return immediately for any new or worsening symptoms. Follow up with primary care provider, call tomorrow to make followup appointment. Prescriptions: Amlodipine Besylate 10 mg PO DAILY #30 tab
[2017-06-27] MEDS ORDERED: HYDROXYZINE PAMOATE 25 MG CAPSULE (4 CAP/ER DISP) PO PRN (17:03)
== END 2017-06-27 17:25 | disposition home or self-care (01) ==
LOC: ER 16:31
DX: Z76.0 Encounter for issue of repeat prescription (principal); I10 Essential (primary) hypertension; Z79.899 Other long term (current) drug therapy; F41.9 Anxiety disorder, unspecified
CPT/HCPCS: 99281; J3490

== ENCOUNTER 2017-07-04 04:25 | Emergency (ER) | payer SELFPAY ==
--- NOTE | 2017-07-04 05:22 | ER Document Report ---
HPI - HPI Pain Level: Denies Notes: Patient is a 31-year-old female with a history of anxiety and hypertension who presents to the ED complaining of having increased anxiety over the last 2 days and feeling of palpitations this morning. Patient states that she no longer has any feeling of palpitation, but does have some anxiety. Patient states that she ran out of her Vistaril medication and was told that she needed to go to the emergency department for her refill until she is established with a mental health clinic per her PCM. Patient states that the medication works well for her. She has no SI/HI. No visual or auditory hallucinations. She denies any drug allergies. No other concerns or complaints at this time. Patient is still eating and drinking without any difficulties. She is urinating normally and having normal bowel movements. Denies any smoking, IV drug use, recent surgery/trauma, prolonged immobilization, hormone replacement, previous DVT/PE. Denies any headache, fever, URI, sore throat, chest pain, syncope, cough, shortness of breath, wheeze, dyspnea, abdominal pain, nausea/ vomiting/diarrhea, urinary retention, dysuria, hematuria, loss of control of bowel or bladder, numbness/tingling, muscle paralysis/weakness, or rash. - ROS Systems Reviewed and Negative: Yes All other systems reviewed and negative - REPRODUCTIVE Reproductive: REPORTS: : Past Medical History - Social History Smoking Status: Unknown if Ever Smoked Family History: Reviewed & Not Pertinent Patient has suicidal ideation: No Patient has homicidal ideation: No - Past Medical History Cardiac Medical History: Reports: Hx Hypertension - related Renal/ Medical History: Denies: Hx Peritoneal Dialysis Past Surgical History: Reports: Hx Section - Immunizations Hx Diphtheria, Pertussis, Tetanus Vaccination: Yes Vertical Provider Document - CONSTITUTIONAL Agree With Documented VS: Yes Notes: PHYSICAL EXAMINATION: GENERAL: Well-appearing, well-nourished and in no acute distress. A&Ox4. Answers questions appropriately. HEAD: Atraumatic, normocephalic. EYES: Pupils equal round and reactive to light, extraocular movements intact, sclera anicteric, conjunctiva are normal. ENT: Nares patent and without discharge. oropharynx clear without exudates. No tonsilar hypertrophy or erythema. Moist mucous membranes. NECK: Normal range of motion, supple without lymphadenopathy LUNGS: Breath sounds clear to auscultation bilaterally and equal. No wheezes rales or rhonchi. HEART: Regular rate and rhythm without murmurs, rubs, gallops. Musculoskeletal: FROM to passive/active. Strength 5+/5. Extremities: No cyanosis, clubbing, or edema b/l. Peripheral pulses 2+. Capillary refill less than 3 seconds. NEUROLOGICAL: Cranial nerves grossly intact. Normal speech, normal gait. Normal sensory, motor exams PSYCH: Normal mood, normal affect. SKIN: Warm, Dry, normal turgor, no rashes or lesions noted. - INFECTION CONTROL TRAVEL OUTSIDE OF THE [place] IN LAST 30 DAYS: No Course - Re-evaluation Re-evalutation: 07/04/17 05:38 Patient is an afebrile, well-hydrated, 31-year-old female who presents to the ED with anxiety and a refill of her Vistaril. Vitals are acceptable. PE is otherwise unremarkable. EKG was unremarkable for any acute pathology. No other labs or imaging warranted at this time based on H&P. Patient has a history of anxiety and her symptoms are consistent with previous anxiety episodes. She has not had any pain or discomfort. Her heart rate during my examination was 90 which in turn makes her PERC negative. Wells score of 0. No SI/HI. Patient has not had any visual or auditory hallucinations. Low suspicion for any acute systemic emergent condition at this time. Recommend conservative measures for symptoms. I will send her home with a prescription for her Vistaril. Recheck with your PCM in 3-5 days. Get established with a psych provider. Return to the ED with any worsening/concerning symptoms otherwise as reviewed discharge. Patient is in agreement. - Vital Signs Vital signs: Temp Pulse Resp BP Pulse Ox 98.5 F 102 H 18 133/77 H 97 07/04/17 04:29 07/04/17 04:29 07/04/17 04:29 07/04/17 04:29 07/04/17 04:29 Discharge - Discharge Clinical Impression: Anxiety Condition: Stable Disposition: HOME, SELF-CARE Instructions: Anxiety ([facility]) Additional Instructions: Maintain adequate fluid and food intake Monitor for any worsening symptoms Make sure you are staying hydrated enough to urinate and have normal BM's Recheck with your PCM in 3-5 days Consider consult with a psych facility for ongoing/worsening symptoms Return to the ED with any worsening symptoms and/or development of fever, headache, chest pain, palpitations, syncope, shortness of breath, trouble breathing, abdominal pain, n/v/d, blood in stool/urine, weakness, or other worsening symptoms that are concerning to you. Prescriptions: Hydroxyzine HCl 25 mg PO TID PRN #30 tablet PRN Reason: Forms: Elevated Blood Pressure Referrals: [facility] [Provider Group] - Follow up as needed [facility] [Provider Group] - Follow up as needed
[2017-07-04 05:59] VITALS: BP 128/70
--- NOTE | 2017-07-04 07:42 | EKG REPORT ---
SEVERITY:- BORDERLINE ECG - SINUS RHYTHM BORDERLINE T ABNORMALITIES, DIFFUSE LEADS,UNCHANGED FROM 05/26/17 : Confirmed by: Gunner Solo MD 04-Jul-2017 07:41:59
== END 2017-07-04 05:57 | disposition home or self-care (01) ==
LOC: ER 04:25
DX: F41.9 Anxiety disorder, unspecified (principal); I10 Essential (primary) hypertension; R00.2 Palpitations; Z79.899 Other long term (current) drug therapy
CPT/HCPCS: 93005; 93010; 99284

== ENCOUNTER → 2017-07-20 | Outpatient (CLI) | payer MEDICAID, OTHER ==
[2017-07-20 09:31] LABS: ABSOLUTE BASOPHILS # (AUTO) 0.1 10^3/uL (0.0-0.2); ABSOLUTE EOSINOPHILS # (AUTO) 0.1 10^3/uL (0.0-0.6); ABSOLUTE LYMPHOCYTES (AUTO) 2.4 10^3/uL (0.5-4.7); ABSOLUTE MONOCYTES (AUTO) 0.5 10^3/uL (0.1-1.4); ABSOLUTE NEUT (AUTO) 6.4 10^3/uL (1.7-8.2); EOSINOPHILS % (AUTO) 0.8 % (0-6); HEMATOCRIT 33.2 % (36.0-47.0); HEMOGLOBIN 11.1 g/dL (12.0-15.5); LYMPHOCYTES % (AUTO) 25.6 % (13-45); MEAN CORPUSCULAR HEMOGLOBIN 27.7 pg (27.0-33.4); MEAN CORPUSCULAR HGB CONC 33.4 g/dL (32.0-36.0); MEAN CORPUSCULAR VOLUME 83 fl (80-97); MONOCYTES % (AUTO) 5.6 % (3-13); PLATELET COUNT 294 10^3/uL (150-450); RED BLOOD COUNT 4.01 10^6/uL (3.72-5.28); RED CELL DISTRIBUTION WIDTH 14.3 % (11.5-14.0); TOTAL CELLS COUNTED % (AUTO) 100 %; WHITE BLOOD COUNT 9.5 10^3/uL (4.0-10.5)
[2017-07-20 09:35] LABS: APPEARANCE,URINE CLEAR; BILIRUBIN,URINE NEGATIVE (NEGATIVE); COLOR,URINE YELLOW; GLUCOSE, URINE NEGATIVE (NEGATIVE); KETONES,URINE 20 mg/dL (NEGATIVE); LEUKOCYTE ESTERASE,URINE NEGATIVE (NEGATIVE); NITRITE,URINE NEGATIVE (NEGATIVE); PROTEIN,URINE NEGATIVE (NEGATIVE); URINE SPECIFIC GRAVITY 1.021; UROBILINOGEN,URINE NEGATIVE mg/dL (<2.0)
[2017-07-20 09:50] LABS: ALANINE AMINOTRANSFERASE 19 U/L (9-52); ALBUMIN 4.3 g/dL (3.5-5.0); ALKALINE PHOSPHATASE 76 U/L (38-126); ANION GAP 14 (5-19); ASPARTATE AMINO TRANSFERASE 16 U/L (14-36); BILIRUBIN,DIRECT 0.3 mg/dL (0.0-0.4); BILIRUBIN,TOTAL 0.5 mg/dL (0.2-1.3); BLOOD UREA NITROGEN 7 mg/dL (7-20); CALCIUM 9.8 mg/dL (8.4-10.2); CARBON DIOXIDE 23 mmol/L (22-30); CHLORIDE 105 mmol/L (98-107); CHOLESTEROL 152.19 mg/dL (0-200); GLUCOSE 83 mg/dL (75-110); POTASSIUM 4.1 mmol/L (3.6-5.0); SODIUM 142.1 mmol/L (137-145); TOTAL PROTEIN 7.8 g/dL (6.3-8.2); TRIGLYCERIDES 46 mg/dL (<150)
[2017-07-20 10:04] LABS: DIRECT LDL 78 mg/dL (<100)
== END ==
LOC: CCC 08:21
DX: Z33.1 Pregnant state, incidental (principal)
CPT/HCPCS: 36415; 80053; 80061; 81001; 83036; 84443; 85025; 87086; 87088; 87186

== ENCOUNTER 2018-01-17 15:17 | Outpatient (CLI) | payer MEDICAID ==
[2018-01-17 16:15] LABS: APPEARANCE,URINE CLEAR; BILIRUBIN,URINE NEGATIVE (NEGATIVE); COLOR,URINE YELLOW; GLUCOSE, URINE NEGATIVE (NEGATIVE); KETONES,URINE TRACE mg/dL (NEGATIVE); LEUKOCYTE ESTERASE,URINE NEGATIVE (NEGATIVE); NITRITE,URINE NEGATIVE (NEGATIVE); PROTEIN,URINE NEGATIVE (NEGATIVE); URINE SPECIFIC GRAVITY 1.008; UROBILINOGEN,URINE NEGATIVE mg/dL (<2.0)
[2018-01-17 16:31] LABS: URINE AMPHETAMINES SCREEN NEGATIVE; URINE BARBITURATES SCREEN NEGATIVE; URINE BENZODIAZEPINES SCREEN NEGATIVE; URINE COCAINE SCREEN NEGATIVE; URINE MARIJUANA (THC) SCREEN NEGATIVE; URINE METHADONE SCREEN NEGATIVE; URINE PHENCYCLIDINE SCREEN NEGATIVE
[2018-01-17 16:40] LABS: UR PRO/CREAT RATIO RESULT 0.2 mg/mg (0.0-0.2); URINE CREATININE 81.6 mg/dL (16-327); URINE PROTEIN 13.8 mg/dL (<12)
[2018-01-17 16:53] LABS: HEMATOCRIT 28.7 % (36.0-47.0); MEAN CORPUSCULAR HEMOGLOBIN 28.7 pg (27.0-33.4); MEAN CORPUSCULAR HGB CONC 34.7 g/dL (32.0-36.0); MEAN CORPUSCULAR VOLUME 83 fl (80-97); PLATELET COUNT 302 10^3/uL (150-450); RED BLOOD COUNT 3.47 10^6/uL (3.72-5.28); RED CELL DISTRIBUTION WIDTH 13.4 % (11.5-14.0); WHITE BLOOD COUNT 12.9 10^3/uL (4.0-10.5)
[2018-01-17 17:17] LABS: ALANINE AMINOTRANSFERASE 14 U/L (9-52); ALBUMIN 3.6 g/dL (3.5-5.0); ALKALINE PHOSPHATASE 159 U/L (38-126); ANION GAP 14 (5-19); ASPARTATE AMINO TRANSFERASE 17 U/L (14-36); BILIRUBIN,DIRECT 0.1 mg/dL (0.0-0.4); BILIRUBIN,TOTAL 0.4 mg/dL (0.2-1.3); BLOOD UREA NITROGEN 3 mg/dL (7-20); CALCIUM 9.1 mg/dL (8.4-10.2); CARBON DIOXIDE 21 mmol/L (22-30); CHLORIDE 104 mmol/L (98-107); GLUCOSE 83 mg/dL (75-110); POTASSIUM 3.6 mmol/L (3.6-5.0); SODIUM 139.2 mmol/L (137-145); TOTAL PROTEIN 7.1 g/dL (6.3-8.2); URIC ACID 3.2 mg/dL (2.5-6.2)
--- NOTE | 2018-01-17 17:28 | Non Stress Test Report ---
Non Stress Test Datetime Report Generated by CPN: 01/17/2018 17:28 DEMOGRAPHIC EGA NST: 32.6 INDICATION Indication for Study: Ordered by Provider MONITORING Monitor Explained: Monitor Explained; Test Explained; Patient Verbalized Understanding Time on Monitor: 01/17/2018 15:31 Time off Monitor: 01/17/2018 17:12 NST Duration: 101 NST INTERVENTIONS NST Interventions: PO Hydration; Reposition Patient Physician Notified NST: Dr. Cárdenas BABY A: [id number] BABY A Movement : Present Contraction Frequency : 0 FHR Baseline : 140 Accelerations : 15X15 Decelerations : None Variability : Moderate 6-25bpm NST Review: Meets Criteria for Reactive NST NST Review and Verified By : Irene Mayers RNC NST Results: Reactive NST REPORT Report Trigger: Send Report
== END 2018-01-17 17:25 | disposition home or self-care (01) ==
LOC: LC 15:17
PROVIDERS: ATTEND Obstetrics & Gynecology Gynecology
PROC: 4A1HXCZ Monitoring of Products of Conception, Cardiac Rate, External Approach (ICD-10-PCS; principal; 2018-01-17)
DX: O47.03 False labor before 37 completed weeks of gestation, third trimester (principal); Z3A.32 32 weeks gestation of pregnancy
CPT/HCPCS: 36415; 59025; 80053; 80307; 81001; 82570; 84156; 84550; 85027

== ENCOUNTER 2018-02-10 16:23 | Outpatient (CLI) | payer MEDICAID ==
[2018-02-10 16:07] LABS: APPEARANCE,URINE CLEAR; BILIRUBIN,URINE NEGATIVE (NEGATIVE); COLOR,URINE STRAW; GLUCOSE, URINE NEGATIVE (NEGATIVE); KETONES,URINE NEGATIVE (NEGATIVE); LEUKOCYTE ESTERASE,URINE NEGATIVE (NEGATIVE); NITRITE,URINE NEGATIVE (NEGATIVE); PROTEIN,URINE NEGATIVE (NEGATIVE); URINE SPECIFIC GRAVITY 1.003; UROBILINOGEN,URINE NEGATIVE mg/dL (<2.0)
[2018-02-10 16:07] LABS: ABSOLUTE EOSINOPHILS # (AUTO) 0.1 10^3/uL (0.0-0.6); ABSOLUTE LYMPHOCYTES (AUTO) 2.9 10^3/uL (0.5-4.7); ABSOLUTE MONOCYTES (AUTO) 0.7 10^3/uL (0.1-1.4); ABSOLUTE NEUT (AUTO) 8.6 10^3/uL (1.7-8.2); BASOPHILS % (AUTO) 0.3 % (0-2); EOSINOPHILS % (AUTO) 0.6 % (0-6); HEMATOCRIT 29.6 % (36.0-47.0); LYMPHOCYTES % (AUTO) 23.5 % (13-45); MEAN CORPUSCULAR HGB CONC 33.8 g/dL (32.0-36.0); MEAN CORPUSCULAR VOLUME 83 fl (80-97); MONOCYTES % (AUTO) 5.8 % (3-13); PLATELET COUNT 299 10^3/uL (150-450); RED BLOOD COUNT 3.56 10^6/uL (3.72-5.28); RED CELL DISTRIBUTION WIDTH 14.2 % (11.5-14.0); SEGMENTED NEUTROPHILS % (AUTO) 69.8 % (42-78); TOTAL CELLS COUNTED % (AUTO) 100 %; WHITE BLOOD COUNT 12.3 10^3/uL (4.0-10.5)
[2018-02-10 16:21] LABS: URINE AMPHETAMINES SCREEN NEGATIVE; URINE BARBITURATES SCREEN NEGATIVE; URINE BENZODIAZEPINES SCREEN NEGATIVE; URINE COCAINE SCREEN NEGATIVE; URINE MARIJUANA (THC) SCREEN NEGATIVE; URINE METHADONE SCREEN NEGATIVE; URINE PHENCYCLIDINE SCREEN NEGATIVE
[2018-02-10 16:22] LABS: ALANINE AMINOTRANSFERASE 9 U/L (9-52); ALBUMIN 3.5 g/dL (3.5-5.0); ALKALINE PHOSPHATASE 176 U/L (38-126); ANION GAP 13 (5-19); ASPARTATE AMINO TRANSFERASE 17 U/L (14-36); BILIRUBIN,DIRECT 0.2 mg/dL (0.0-0.4); BILIRUBIN,TOTAL 0.3 mg/dL (0.2-1.3); BLOOD UREA NITROGEN 6 mg/dL (7-20); CALCIUM 9.2 mg/dL (8.4-10.2); CARBON DIOXIDE 24 mmol/L (22-30); CHLORIDE 102 mmol/L (98-107); GLUCOSE 72 mg/dL (75-110); POTASSIUM 3.6 mmol/L (3.6-5.0); SODIUM 138.8 mmol/L (137-145); TOTAL PROTEIN 7.1 g/dL (6.3-8.2); URIC ACID 3.3 mg/dL (2.5-6.2)
--- NOTE | 2018-02-10 16:47 | Non Stress Test Report ---
Non Stress Test Datetime Report Generated by CPN: 02/10/2018 16:47 DEMOGRAPHIC EGA NST: 36.2 INDICATION Indication for Study: Gestational Hypertension; Ordered by Provider VITAL SIGNS Temperature - NST: 99.1 Pulse - NST: 79 RESP - NST: 18 NBPSYS NST: 110 NBPDIA NST: 59 MONITORING Monitor Explained: Monitor Explained; Test Explained; Patient Verbalized Understanding Time on Monitor: 02/10/2018 14:34 Time off Monitor: 02/10/2018 15:56 NST Duration: 82 NST INTERVENTIONS NST Interventions: PO Hydration; Reposition Patient Physician Notified NST: A. Ashraf CNM BABY A: [id number] BABY A Movement : Present Contraction Frequency : none FHR Baseline : 140 Accelerations : 15X15 Decelerations : None Variability : Moderate 6-25bpm NST Review: Meets Criteria for Reactive NST NST Review and Verified By : MAXIMUS Beckford NST Results: Reactive NST REPORT Report Trigger: Send Report
== END 2018-02-10 16:51 | disposition home or self-care (01) ==
LOC: LC 16:23
PROVIDERS: ATTEND Obstetrics & Gynecology
PROC: 4A1HXCZ Monitoring of Products of Conception, Cardiac Rate, External Approach (ICD-10-PCS; principal; 2018-02-10)
DX: O13.3 Gestational [pregnancy-induced] hypertension without significant proteinuria, third trimester (principal); Z3A.36 36 weeks gestation of pregnancy
CPT/HCPCS: 36415; 59025; 80053; 80307; 81001; 83615; 84550; 85025

== ENCOUNTER 2018-02-12 14:29 | Outpatient (CLI) | payer MEDICAID ==
[2018-02-12 15:52] LABS: 24 HOUR URINE PROTEIN RESULT 672 mg/day (42-225)
--- NOTE | 2018-02-12 15:53 | Non Stress Test Report ---
Non Stress Test Datetime Report Generated by CPN: 02/12/2018 15:53 DEMOGRAPHIC EGA NST: 36.4 INDICATION Indication for Study: Ordered by Provider MONITORING Monitor Explained: Monitor Explained; Test Explained; Patient Verbalized Understanding Time on Monitor: 02/12/2018 15:21 Time off Monitor: 02/12/2018 15:52 NST Duration: 31 NST INTERVENTIONS NST Interventions: PO Hydration Physician Notified NST: K. Tate, CNM BABY A: [id number] BABY A Movement : Present Contraction Frequency : none FHR Baseline : 140 Accelerations : 15X15 Decelerations : None Variability : Moderate 6-25bpm NST Review: Meets Criteria for Reactive NST NST Review and Verified By : MAXIMUS Osborne Results: Reactive NST REPORT Report Trigger: Send Report
[2018-02-12 15:58] LABS: APPEARANCE,URINE CLEAR; BILIRUBIN,URINE NEGATIVE (NEGATIVE); COLOR,URINE YELLOW; GLUCOSE, URINE NEGATIVE (NEGATIVE); KETONES,URINE NEGATIVE (NEGATIVE); LEUKOCYTE ESTERASE,URINE NEGATIVE (NEGATIVE); NITRITE,URINE NEGATIVE (NEGATIVE); PROTEIN,URINE NEGATIVE (NEGATIVE); URINE SPECIFIC GRAVITY 1.008; UROBILINOGEN,URINE NEGATIVE mg/dL (<2.0)
[2018-02-12 16:12] LABS: MEAN CORPUSCULAR HEMOGLOBIN 27.6 pg (27.0-33.4); MEAN CORPUSCULAR HGB CONC 33.3 g/dL (32.0-36.0); MEAN CORPUSCULAR VOLUME 83 fl (80-97); PLATELET COUNT 267 10^3/uL (150-450); RED BLOOD COUNT 3.25 10^6/uL (3.72-5.28); WHITE BLOOD COUNT 11.5 10^3/uL (4.0-10.5)
[2018-02-12 16:15] LABS: URINE AMPHETAMINES SCREEN NEGATIVE; URINE BARBITURATES SCREEN NEGATIVE; URINE BENZODIAZEPINES SCREEN NEGATIVE; URINE COCAINE SCREEN NEGATIVE; URINE MARIJUANA (THC) SCREEN NEGATIVE; URINE METHADONE SCREEN NEGATIVE; URINE PHENCYCLIDINE SCREEN NEGATIVE
[2018-02-12 16:34] LABS: ALANINE AMINOTRANSFERASE 14 U/L (9-52); ALBUMIN 3.1 g/dL (3.5-5.0); ALKALINE PHOSPHATASE 162 U/L (38-126); ANION GAP 10 (5-19); ASPARTATE AMINO TRANSFERASE 15 U/L (14-36); BILIRUBIN,DIRECT 0.2 mg/dL (0.0-0.4); BILIRUBIN,TOTAL 0.3 mg/dL (0.2-1.3); BLOOD UREA NITROGEN 4 mg/dL (7-20); CALCIUM 8.9 mg/dL (8.4-10.2); CARBON DIOXIDE 24 mmol/L (22-30); CHLORIDE 105 mmol/L (98-107); GLUCOSE 73 mg/dL (75-110); POTASSIUM 3.7 mmol/L (3.6-5.0); SODIUM 139.2 mmol/L (137-145); TOTAL PROTEIN 6.2 g/dL (6.3-8.2); URIC ACID 3.2 mg/dL (2.5-6.2)
--- NOTE | 2018-02-12 17:33 | L&D Progress Notes ---
PROGRESS NOTES Datetime Report Generated by CPN: 02/12/2018 17:33 PROGRESS NOTE Impression: Eclampsia - Moderate Procedures- Other: PIH labs Plan: Continue Present Management; Discharge Vital Signs : Reviewed; Within Normal Limits Comment: Pt here today for a PIH workup. Her 24 hr showed 672 mg protein. All other PIH labs WNL. She denies HAs, visions changes and RUQ tenderness. Her BPs here at L_D avg 130s/80s. The current plan after conferring with Dr. Matos is to discharge pt and have her return on Saturday for repeat labs and an NST. If she is stable, she will return on Saturday night for admisssion and Repeat C/S on Saturday. Pt has been counseled to rest and pre-eclampsia precautions were given. She has been compliant during the . Pt relayed understanding of the instructions and plan. FETUS A FHR - Baseline: 160s Monitoring: External US Accelerations: 15X15 Decelerations: None FHR Category: Category I : 36.4 SIGNATURE SIGNATURE: [id number] SIGNATURE: [id number] SIGNATURE: [id number] SIGNATURE: [id number] Signature: with User ID: [email or web address]
== END 2018-02-12 18:02 | disposition home or self-care (01) ==
LOC: LC 14:29
PROVIDERS: ATTEND Obstetrics & Gynecology
PROC: 4A1HXCZ Monitoring of Products of Conception, Cardiac Rate, External Approach (ICD-10-PCS; principal; 2018-02-12)
DX: O16.3 Unspecified maternal hypertension, third trimester (principal); Z3A.36 36 weeks gestation of pregnancy
CPT/HCPCS: 36415; 59025; 80053; 80307; 81001; 83615; 84156; 84550; 85027

== ENCOUNTER 2018-02-14 15:12 | Outpatient (CLI) | payer MEDICAID ==
--- NOTE | 2018-02-14 16:05 | Non Stress Test Report ---
Non Stress Test Datetime Report Generated by CPN: 02/14/2018 16:04 DEMOGRAPHIC EGA NST: 36.6 INDICATION Indication for Study: Gestational Hypertension; Ordered by Provider Indication for Study (NST) Other: scheduled testing VITAL SIGNS Temperature - NST: 97.3 Pulse - NST: 96 RESP - NST: 18 NBPSYS NST: 135 NBPDIA NST: 79 MONITORING Monitor Explained: Monitor Explained; Test Explained; Patient Verbalized Understanding Time on Monitor: 02/14/2018 15:21 Time off Monitor: 02/14/2018 15:46 NST Duration: 25 NST INTERVENTIONS NST Interventions: PO Hydration; Reposition Patient Physician Notified NST: A Ashraf CNM Physician Notified NST: A Ashraf CNM BABY A: [id number] BABY A Movement : Present Contraction Frequency : denies FHR Baseline : 140 Accelerations : 15X15 Decelerations : None Variability : Moderate 6-25bpm NST Review: Meets Criteria for Reactive NST NST Review and Verified By : D Bellavance RN NST Results: Reactive NST REPORT Report Trigger: Send Report
== END 2018-02-14 16:05 | disposition home or self-care (01) ==
LOC: LC 15:12
PROVIDERS: ATTEND Obstetrics & Gynecology
PROC: 4A1HXCZ Monitoring of Products of Conception, Cardiac Rate, External Approach (ICD-10-PCS; principal; 2018-02-14)
DX: O13.3 Gestational [pregnancy-induced] hypertension without significant proteinuria, third trimester (principal); Z3A.36 36 weeks gestation of pregnancy
CPT/HCPCS: 59025

== ENCOUNTER 2018-02-17 06:00 | Inpatient (IN) | payer MEDICAID ==
[2018-02-17] MEDS ORDERED: RINGERS SOLUTION,LACTATED 1,000 ML IV PRN ×2 (07:03→10:56)
[2018-02-17] MEDS ORDERED: CEFAZOLIN 2 GM/D5W RTU 2 GM/50 ML RTUPB IV ONE (07:15)
[2018-02-17] MEDS ORDERED: RINGERS SOLUTION,LACTATED 1,000 ML IV ONE (07:15)
[2018-02-17 07:26] LABS: HEMATOCRIT 26.5 % (36.0-47.0); HEMOGLOBIN 9.2 g/dL (12.0-15.5); MEAN CORPUSCULAR HEMOGLOBIN 28.1 pg (27.0-33.4); MEAN CORPUSCULAR HGB CONC 34.5 g/dL (32.0-36.0); MEAN CORPUSCULAR VOLUME 81 fl (80-97); PLATELET COUNT 266 10^3/uL (150-450); RED BLOOD COUNT 3.27 10^6/uL (3.72-5.28); RED CELL DISTRIBUTION WIDTH 14.2 % (11.5-14.0); WHITE BLOOD COUNT 10.9 10^3/uL (4.0-10.5)
[2018-02-17 07:46] LABS: ANION GAP 11 (5-19); BLOOD UREA NITROGEN 6 mg/dL (7-20); CALCIUM 8.5 mg/dL (8.4-10.2); CARBON DIOXIDE 23 mmol/L (22-30); CHLORIDE 106 mmol/L (98-107); GLUCOSE 79 mg/dL (75-110); POTASSIUM 3.5 mmol/L (3.6-5.0); SODIUM 139.9 mmol/L (137-145)
[2018-02-17 08:33] LABS: APPEARANCE,URINE SLIGHTLY-CLOUDY; BILIRUBIN,URINE NEGATIVE (NEGATIVE); COLOR,URINE YELLOW; GLUCOSE, URINE NEGATIVE (NEGATIVE); KETONES,URINE TRACE mg/dL (NEGATIVE); LEUKOCYTE ESTERASE,URINE NEGATIVE (NEGATIVE); NITRITE,URINE NEGATIVE (NEGATIVE); PROTEIN,URINE NEGATIVE (NEGATIVE); UROBILINOGEN,URINE NEGATIVE mg/dL (<2.0)
[2018-02-17 08:44] LABS: URINE AMPHETAMINES SCREEN NEGATIVE; URINE BARBITURATES SCREEN NEGATIVE; URINE BENZODIAZEPINES SCREEN NEGATIVE; URINE MARIJUANA (THC) SCREEN NEGATIVE; URINE METHADONE SCREEN NEGATIVE; URINE PHENCYCLIDINE SCREEN NEGATIVE
[2018-02-17 08:50] LABS: URINE COCAINE SCREEN NEGATIVE
[2018-02-17] MEDS ORDERED: MIDAZOLAM 2 MG/2 ML INJ ONE (09:18)
[2018-02-17] MEDS ORDERED: FENTANYL CITRATE INJ/PF 100 MCG/2 ML AMPUL ONE ×2 (09:18→11:19)
[2018-02-17] MEDS ORDERED: OXYTOCIN 10 UNIT/ML VIAL ONE (09:18)
[2018-02-17] MEDS ORDERED: PROPOFOL INJ 200 MG/20 ML VIAL IV ONE (09:19)
[2018-02-17] MEDS ORDERED: ACETAMINOPHEN 1,000 MG/100 ML RTUPB IV ONE (09:19)
[2018-02-17] MEDS ORDERED: PROMETHAZINE HCL INJ 25 MG/1 ML VIAL IV PRN ×3 (10:09→10:56)
[2018-02-17] MEDS ORDERED: FENTANYL CITRATE INJ/PF 100 MCG/2 ML AMPUL IV PRN ×3 (10:09)
[2018-02-17] MEDS ORDERED: MEPERIDINE HCL/PF INJ 25 MG/1 ML DISP.SYRIN IV PRN (10:09)
[2018-02-17] MEDS ORDERED: DIPHENHYDRAMINE HCL 50 MG/ML VIAL IV PRN (10:09)
[2018-02-17] MEDS ORDERED: OXYCODONE-ACETAMINOPHEN 5-325 MG TABLET PO PRN ×4 (10:09→10:56)
[2018-02-17] MEDS ORDERED: MEASLES,MUMPS&RUBELLA VACC/PF 0.5 ML VIAL SUBCUT PRN (10:56)
[2018-02-17] MEDS ORDERED: SIMETHICONE 80 MG TAB.CHEW PO PRN (10:56)
[2018-02-17] MEDS ORDERED: OXYTOCIN/NORMAL SALINE 20 UNIT/1,000 ML RTUINJ IV PRN (10:56)
[2018-02-17] MEDS ORDERED: ACETAMINOPHEN 325 MG TABLET PO PRN (10:56)
[2018-02-17] MEDS ORDERED: MORPHINE SULFATE 10 MG/ML INJ IV PRN (10:56)
[2018-02-17] MEDS ORDERED: DIPH/PERTUSS(ACELL)/TETANUS VAC/PF 0.5 ML SYR (>=10YO) IM PRN (10:56)
[2018-02-17] MEDS ORDERED: ACETAMINOPHEN 1,000 MG/100 ML RTUPB IV PRN (10:56)
--- NOTE | 2018-02-17 11:09 | PDOC DELIVERY SUMMARY ---
Delivery Summary - Maternal Hx : II Hx Para: I Hx # Term Pregnancies: 1 ROMEO: 03/10/18 Gestational Age: 37+0 Intrapartum: Pre-Eclampsia Ruptured Membranes: AROM Time of Rupture: 10:03 Fluids: Clear - Delivery Labor: Not In Labor Presentation: Vertex Heart Rate Monitoring: Done Pre-Operatively Support Person Present: Yes - BABYS FATHER AT BEDSIDE Location: OR : Scheduled Placenta: Within Normal Limits Delivery of Placenta Date: 02/17/18 Delivery of Placenta Time: 10:05 - Medications Type of Anesthesia:: Spinal - Infant Assess and Care Baby 1 Female Delivery of Date: 02/17/18 Delivery of Time: 10:03 at 1 minute: 9 at 5 minutes: 9 Preprinted Number On Band: [id number] Skin to Skin: Yes Skin to Skin (Mins): 4 To Nursery At: 10:15 Mode of Transport: Bassinet Infant Delivery Weight: 2,695 Delivery Length: 18.75 in - Delivery Personnel [employer] DRIVER: WALTER NGUYEN RN: ANISHA BENDER MD: ESTELA WRIGHT
[2018-02-17] MEDS ORDERED: OXYTOCIN/NORMAL SALINE 20 UNIT/1,000 ML RTUINJ ONE (11:19)
--- NOTE | 2018-02-17 11:56 | OPERATIVE REPORT E ---
Operative Report NAME: LAURIE CHOU : 1985 AGE: 32Y DATE OF SURGERY: 02/17/2018 ROOM: 211 PREOPERATIVE DIAGNOSES: 1. IUP at 37 weeks and 1 day. 2. Previous . 3. Existing pre-eclampsia. POSTOPERATIVE DIAGNOSES: 1. IUP at 37 weeks and 1 day. 2. Previous . 3. Existing pre-eclampsia. SURGEON: ESTELA WRIGHT M.D. ANESTHESIA: Dr. Aponte with a spinal. FINDINGS: Female infant in cephalic presentation with Apgars of 9 and 9 and weight 5 pounds 15 ounces. ESTIMATED BLOOD LOSS: 600 mL. SPECIMENS REMOVED: None. PROCEDURE: Repeat low transverse hysterotomy section. PROCEDURE IN DETAIL: The patient was taken to the operating room and prepared and draped in a normal sterile fashion in the dorsal lithotomy position. Under sterile conditions, a 10 blade scalpel was used to recreate the incision along the patient's scar and this was carried through to the underlying layer of fascial with the same scalpel. The fascia was excised and extended laterally with Toussaint's. The fascia was then dissected from the rectus muscle sharply and rectus muscle was divided bluntly and peritoneal cavity was entered bluntly with good visualization of the bladder and the uterus. There was a uterine window noted at this point. The bladder blade was inserted and the hysterotomy was nicked just above the window with the scalpel and extended laterally with surgeon finger fracture. The was then delivered atraumatically. The nose and mouth were suctioned with a suction bulb and the cord was clamped and cut and handed off to awaiting pediatricians. Cord blood was collected and the placenta was removed manually. The uterus was exteriorized and cleared of clots and debris. The hysterotomy was closed with 0 Monocryl in a running, locked fashion and a second layer of the same suture was used to imbricate to ensure hemostasis. The uterus was then returned to the abdomen and peritoneal cavity was cleared of clots and debris. The rectus muscle and peritoneum were reapproximated with mattress stitch of 2-0 chromic. The fascia was closed with 0 Vicryl. The subcutaneous layer was closed with plain catgut and the skin was closed with 4-0 Vicryl. The patient tolerated the procedure well. Sponge, lap, and needle counts were correct x2, and the patient was taken to recovery in stable condition. DICTATING PHYSICIAN: ESTELA WRIGHT M.D. [id number] PHY#: [id number] ID: [id number] JOB#: [id number] ACCT: [id number] cc:ESTELA WRIGHT M.D. >
[2018-02-17] MEDS ORDERED: KETOROLAC TROMETHAMINE INJ/PF 30 MG/1 ML SDV ONE (14:00)
[2018-02-17] MEDS: KETOROLAC TROMETHAMINE INJ/PF 30 MG/1 ML SDV IV SCH ×2 (14:05→22:34)
[2018-02-17] MEDS: DOCUSATE SODIUM 100 MG CAPSULE PO SCH (17:18)
[2018-02-17] MEDS: NIFEDIPINE 30 MG TAB.ER.24 PO SCH (17:18)
[2018-02-18] MEDS: KETOROLAC TROMETHAMINE INJ/PF 30 MG/1 ML SDV IV SCH (05:27)
[2018-02-18 06:30] LABS: HEMATOCRIT 25.4 % (36.0-47.0); HEMOGLOBIN 8.7 g/dL (12.0-15.5); MEAN CORPUSCULAR HGB CONC 34.3 g/dL (32.0-36.0); MEAN CORPUSCULAR VOLUME 82 fl (80-97); PLATELET COUNT 280 10^3/uL (150-450); RED BLOOD COUNT 3.12 10^6/uL (3.72-5.28); WHITE BLOOD COUNT 12.2 10^3/uL (4.0-10.5)
[2018-02-18] MEDS ORDERED: PRENATAL VITAMIN W DHA CAPSULE PO SCH (10:00)
[2018-02-18] MEDS: NIFEDIPINE 30 MG TAB.ER.24 PO SCH ×2 (10:11→18:09)
[2018-02-18] MEDS: DOCUSATE SODIUM 100 MG CAPSULE PO SCH ×2 (10:11→18:09)
[2018-02-18] MEDS: IBUPROFEN 800 MG TABLET PO SCH ×3 (12:02→23:18)
--- NOTE | 2018-02-18 17:10 | PDOC PROGRESS REPORT ---
Subjective-OB Progress Note for:: 02/18/18 Subjective: 32yo G2 now P2 s/p repeat ppd1. Pt. ambulating, voiding and bresatfeeding without difficulty. Denies concerns at this time. Pain well controlled with medications. Physical Exam (OB) Vital Signs: Temp Pulse Resp BP Pulse Ox 97.7 F 88 18 139/99 H 100 02/18/18 11:22 02/18/18 11:22 02/18/18 11:22 02/18/18 11:22 02/18/18 11:22 Intake & Output 02/17/18 02/18/18 02/19/18 06:59 06:59 06:59 Intake Total 4700 500 Output Total 2525 Balance 2175 500 Weight 111.2 kg 111.2 kg - General General Appearance: Appears well In distress: None - PIH/Pre-Eclampsia DTR's: 1 + Clonus: Negative Headache: Absent Epigastric Pain: No Visual Changes: No - Dressing Removed: No Incision: Dressing Closure Type: opsite - Lochia Lochia Amount: Scant < 10 ml Lochia Color: Rubra/Red - Abdomen Description: Tender, Soft Hernia Present: No Fundal Description: Firm, Midline Fundal Height: u/u - u/2 - Respiratory Respiratory Status: No respiratory distress - Extremities Upper extremity: Normal inspection Lower extremities: Normal inspection - Neurological Cognition: Normal Orientation: AAOx4 - Psychological Associated symptoms: Normal affect, Normal mood Objective-Diagnostic Laboratory: 02/18/18 06:05 02/17/18 07:11 02/18/18 06:05 WBC 12.2 H RBC 3.12 L Hgb 8.7 L Hct 25.4 L MCV 82 MCH 28.0 MCHC 34.3 RDW 14.0 Plt Count 280 Assessment and Plan(PN) - Assessment and Plan (1) delivery delivered Is this a current diagnosis for this admission?: Yes Plan: routine pp care, continue to monitor for s/s of infection (2) Pre-eclampsia during in third trimester, antepartum Is this a current diagnosis for this admission?: Yes Plan: continue to monitor, continue procardia, consider increasing dose if bps continue to be elevated (3) Anemia complicating , third trimester Is this a current diagnosis for this admission?: Yes Plan: increase dietary iron and feso4 bid - Time Spent with Patient Time with patient: Less than 15 minutes Medications reviewed and adjusted accordingly: Yes - Disposition Anticipated Discharge: Home Within: within 24 hours
[2018-02-19] MEDS: IBUPROFEN 800 MG TABLET PO SCH (05:43)
--- NOTE | 2018-02-19 08:49 | PDOC DISCHARGE SUMMARY ---
Final Diagnosis Discharge Date: 02/19/18 - Final Diagnosis (1) delivery delivered Is this a current diagnosis for this admission?: Yes (2) Pre-eclampsia during in third trimester, antepartum Is this a current diagnosis for this admission?: Yes (3) Anemia complicating , third trimester Is this a current diagnosis for this admission?: Yes Discharge Data - Discharge Medication Prescriptions: Oxycodone HCl/Acetaminophen [Percocet 5-325 mg Tablet] 2 tab PO Q4HP PRN #20 tablet PRN Reason: For Pain Scale 3-5 Ibuprofen [Motrin 800 mg Tablet] 800 mg PO Q8HP PRN #60 tablet PRN Reason: Abdominal Cramping Docusate Sodium [Colace 100 mg Capsule] 100 mg PO BID #60 capsule Ferrous Sulfate [Feosol 325 mg Tablet] 325 mg PO BID #60 tablet Nifedipine [Procardia XL 30 mg Tablet] 30 mg PO BID #60 tab.er.24 Home Medications: No122/Iron/Folic Acid [ Multi Tablet] 1 each PO DAILY 01/17/18 Aspirin [Aspirin 81 mg Chewable Tablet] 1 tab PO DAILY 02/14/18 Docusate Sodium [Colace 100 mg Capsule] 100 mg PO BID #60 capsule 02/19/18 Ferrous Sulfate [Feosol 325 mg Tablet] 325 mg PO BID #60 tablet 02/19/18 Ibuprofen [Motrin 800 mg Tablet] 800 mg PO Q8HP PRN #60 tablet 02/19/18 Nifedipine [Procardia XL 30 mg Tablet] 30 mg PO BID #60 tab.er.24 02/19/18 Oxycodone HCl/Acetaminophen [Percocet 5-325 mg Tablet] 2 tab PO Q4HP PRN #20 tablet 02/19/18 Reason(s) for Admission: Ceasarean Section-Repeat Procedures: NST, Ultrasound Intrapartum Procedure(s): : Low Cervical, Transverse - Diagnosis Test Laboratory: Temp Pulse Resp BP Pulse Ox 98.1 F 79 18 136/76 H 100 02/19/18 04:41 02/19/18 04:41 02/19/18 04:41 02/19/18 04:41 02/19/18 04:41 02/17/18 02/17/18 02/18/18 07:11 08:10 06:05 RBC 3.27 L 3.12 L Hgb 9.2 L 8.7 L Hct 26.5 L 25.4 L Urine Opiates Screen NEGATIVE - Discharge information/Instructions Discharge Activity: Activity As Tolerated, Balance Activity w/Rest, No Driving, No Lifting Over 10 Pounds, No Lifting/Push/Pulling, Pelvic Rest, No tub bath, Walk Frequently Discharge Diet: As Tolerated, Regular Disposition: HOME, SELF-CARE Follow up with: [facility] in: 2, Days - blood pressure check
[2018-02-19 13:12] VITALS: BP 125/75
== END 2018-02-19 14:55 | disposition home or self-care (01) | DRG 788 ==
LOC: 2N 06:00
PROVIDERS: ADMIT Obstetrics & Gynecology; ATTEND Obstetrics & Gynecology
PROC: 10D00Z1 Extraction of Products of Conception, Low, Open Approach (ICD-10-PCS; principal; 2018-02-17 09:00)
DX: O34.211 Maternal care for low transverse scar from previous cesarean delivery (principal); O11.4 Pre-existing hypertension with pre-eclampsia, complicating childbirth; O99.02 Anemia complicating childbirth; D64.9 Anemia, unspecified; O99.214 Obesity complicating childbirth; N85.8 Other specified noninflammatory disorders of uterus; Z3A.38 38 weeks gestation of pregnancy; Z37.0 Single live birth
CPT/HCPCS: 1961; 36415; 80048; 80307; 81001; 82962; 85027; 86850; 86900; 86901; 94799; J0131; J1885; J2250; J2590; J2704; J3010; J3490; J7120

== ENCOUNTER 2018-07-16 19:16 | Emergency (ER) | payer SELFPAY ==
[2018-07-16] MEDS ORDERED: NIFEDIPINE 30 MG TAB.ER.24 PO ONE (21:27)
--- NOTE | 2018-07-16 21:31 | ER Document Report ---
HPI - HPI Time Seen by Provider: 07/16/18 21:10 Pain Level: Denies Context: Patient is a 32-year-old female that comes to the emergency department for chief complaint of running out of her blood pressure medication. She states that she is on Procardia twice a day, she was changed from once a day to twice daily because of poor efficacy, efficacy is much improved now. She has been out for 2 days. She states she was supposed to continue on this until she followed up with primary care but she has not been able to get a appointment yet. She is unsure what she used to be on, she mentioned several different medications. She denies headache, chest pain, or any symptoms. - REPRODUCTIVE Reproductive: DENIES: : Past Medical History - General Information source: Patient - Social History Smoking Status: Never Smoker Frequency of alcohol use: None Drug Abuse: None Lives with: Family Family History: Reviewed & Not Pertinent Patient has suicidal ideation: No Patient has homicidal ideation: No - Past Medical History Cardiac Medical History: Reports: Hx Hypertension - related Renal/ Medical History: Denies: Hx Peritoneal Dialysis Past Surgical History: Reports: Hx Section - Immunizations Hx Diphtheria, Pertussis, Tetanus Vaccination: Yes Vertical Provider Document - CONSTITUTIONAL General Appearance: WD/WN, No Apparent Distress - INFECTION CONTROL TRAVEL OUTSIDE OF THE [place] IN LAST 30 DAYS: No - HEENT HEENT: Atraumatic, Normocephalic - NECK Neck: Normal Inspection - RESPIRATORY Respiratory: Breath Sounds Normal, No Respiratory Distress - CARDIOVASCULAR Cardiovascular: Regular Rate, Regular Rhythm - GI/ABDOMEN Gastrointestinal: Abdomen Soft, Abdomen Non-Tender - BACK Back: Normal Inspection - MUSCULOSKELETAL/EXTREMETIES Musculoskeletal/Extremeties: MAEW, FROM, Non-Tender - NEURO Level of Consciousness: Awake, Alert, Appropriate - DERM Integumentary: Warm, Dry, No Rash Course - Re-evaluation Re-evalutation: Patient mentioned amlodipine she was to be on, system shows triamterene/HCTZ, patient states that she thinks this was not working but she is not sure. She requests to be back on Procardia until she sees primary care. She was provided with this. She is asymptomatic. Discussed follow-up and return precautions. Patient states understanding and agreement. - Vital Signs Vital signs: Temp Pulse Resp BP Pulse Ox 98.1 F 88 18 161/109 H 100 07/16/18 19:21 04/24/19 19:21 07/16/18 19:21 07/16/18 19:21 07/16/18 19:21 Discharge - Discharge Clinical Impression: Essential hypertension Condition: Stable Disposition: HOME, SELF-CARE Additional Instructions: Follow-up with your primary care for additional evaluation and management of blood pressure. Return to the emergency department for any concerning symptoms including headache, chest pain, or any other concerning symptoms. Prescriptions: Nifedipine [Procardia Xl 30 mg Tablet] 30 mg PO BID #60 tab.er.24 Referrals: [facility] [Primary Care Provider] - Follow up as needed
[2018-07-16 21:50] VITALS: BP 163/110
== END 2018-07-16 21:50 | disposition home or self-care (01) ==
LOC: ER 19:16
DX: I10 Essential (primary) hypertension (principal)
CPT/HCPCS: 99281

== ENCOUNTER 2018-11-09 12:04 | Emergency (ER) | payer SELFPAY ==
--- NOTE | 2018-11-09 12:57 | ER Document Report ---
ED Medical Screen (RME) - General Chief Complaint: Dizziness Stated Complaint: LIGHTHEADED Time Seen by Provider: 11/09/18 12:33 Primary Care Provider: [facility] [Primary Care Provider] - Follow up as needed Notes: Patient is a 33-year-old female presents to the emergency department with a chief complaint of lightheadedness. Patient states earlier this morning she was sitting down playing with her children when she had a episode where she felt lightheaded. Patient states that at that time she did not have chest pain, palpitations, shortness of breath or any other symptoms. Patient states this l asted less than 60 seconds. Patient states she then felt scared and anxious. Patient states she does have a history of anemia and takes iron. Patient denies recent illness, fever, nausea vomiting diarrhea. Patient states she has not had any blurred vision or headache. Patient reports her last menstrual cycle was 1 week ago. Patient denies urinary symptoms. Patient does take nifedipine 30 mg p.o. twice a day for her blood pressure. TRAVEL OUTSIDE OF THE [place] IN LAST 30 DAYS: No - Related Data Allergies/Adverse Reactions: No Known Allergies Allergy (Verified 07/16/18 19:17) Past Medical History - Past Medical History Cardiac Medical History: Reports: Hx Hypertension - related Renal/ Medical History: Denies: Hx Peritoneal Dialysis Past Surgical History: Reports: Hx Section - Immunizations Hx Diphtheria, Pertussis, Tetanus Vaccination: Yes History of Influenza Vaccine for 12/2016 - 05/2017 Season: No Physical Exam - Vital signs Vitals: Temp Pulse Resp BP Pulse Ox 98.4 F 108 H 17 160/115 H 100 11/09/18 12:16 11/09/18 12:16 11/09/18 12:16 11/09/18 12:16 11/09/18 12:16 Interpretation: Hypertensive - Cardiovascular Rhythm: Regular Heart sounds: Normal auscultation, S1 appreciated, S2 appreciated Course - Re-evaluation Re-evalutation: 11/09/18 12:55 I have greeted and performed a rapid initial assessment of this patient. A comprehensive ED assessment and evaluation of the patient, analysis of test results and completion of the medical decision making process will be conducted by additional ED providers. - Vital Signs Vital signs: Temp Pulse Resp BP Pulse Ox 98.4 F 108 H 17 160/115 H 100 11/09/18 12:16 11/09/18 12:16 11/09/18 12:16 11/09/18 12:16 11/09/18 12:16 Doctor's Discharge - Discharge Referrals: [facility] [Primary Care Provider] - Follow up as needed
[2018-11-09 13:26] LABS: ABSOLUTE BASOPHILS # (AUTO) 0.1 10^3/uL (0.0-0.2); ABSOLUTE EOSINOPHILS # (AUTO) 0.1 10^3/uL (0.0-0.6); ABSOLUTE LYMPHOCYTES (AUTO) 3.1 10^3/uL (0.5-4.7); ABSOLUTE MONOCYTES (AUTO) 0.7 10^3/uL (0.1-1.4); ABSOLUTE NEUT (AUTO) 7.8 10^3/uL (1.7-8.2); BASOPHILS % (AUTO) 0.7 % (0-2); EOSINOPHILS % (AUTO) 1.2 % (0-6); HEMATOCRIT 34.2 % (36.0-47.0); LYMPHOCYTES % (AUTO) 26.4 % (13-45); MEAN CORPUSCULAR HEMOGLOBIN 25.3 pg (27.0-33.4); MEAN CORPUSCULAR HGB CONC 32.1 g/dL (32.0-36.0); MEAN CORPUSCULAR VOLUME 79 fl (80-97); MONOCYTES % (AUTO) 5.7 % (3-13); PLATELET COUNT 335 10^3/uL (150-450); RED BLOOD COUNT 4.35 10^6/uL (3.72-5.28); RED CELL DISTRIBUTION WIDTH 15.8 % (11.5-14.0); TOTAL CELLS COUNTED % (AUTO) 100 %; WHITE BLOOD COUNT 11.8 10^3/uL (4.0-10.5)
[2018-11-09 13:36] LABS: APPEARANCE,URINE CLOUDY; BILIRUBIN,URINE NEGATIVE (NEGATIVE); COLOR,URINE YELLOW; GLUCOSE, URINE NEGATIVE (NEGATIVE); KETONES,URINE NEGATIVE (NEGATIVE); LEUKOCYTE ESTERASE,URINE NEGATIVE (NEGATIVE); NITRITE,URINE NEGATIVE (NEGATIVE); PROTEIN,URINE NEGATIVE (NEGATIVE); URINE SPECIFIC GRAVITY 1.019; UROBILINOGEN,URINE NEGATIVE mg/dL (<2.0)
--- NOTE | 2018-11-09 14:07 | RADIOLOGY REPORT (SQ) ---
EXAM DESCRIPTION: CHEST 2 VIEWS COMPLETED DATE/TIME: 11/09/2018 1:49 pm REASON FOR STUDY: lightheaded, elevated bp COMPARISON: 05/26/2017 TECHNIQUE: Frontal and lateral radiographic views of the chest acquired. NUMBER OF VIEWS: Two view. LIMITATIONS: None. FINDINGS: LUNGS AND PLEURA: No pneumothorax. No consolidation or pleural effusion. MEDIASTINUM AND HILAR STRUCTURES: Stable. HEART AND VASCULAR STRUCTURES: Stable. BONES: No acute findings. HARDWARE: None in the chest. OTHER: No other significant finding. IMPRESSION: NO ACUTE FINDINGS. TECHNICAL DOCUMENTATION: JOB ID: [id number] [employer]- All Rights Reserved Reading location - IP/workstation name: [email or web address]
--- NOTE | 2018-11-09 14:48 | ER Document Report ---
ED General - General Chief Complaint: Dizziness Stated Complaint: LIGHTHEADED Time Seen by Provider: 11/09/18 12:33 Primary Care Provider: [facility] [Provider Group] - Follow up in 3-5 days [facility] [Provider Group] - Follow up in 3-5 days [facility] [NO LOCAL MD] - Follow up in 3-5 days Notes: Patient is a 33-year-old female with anxiety that presents to the emergency department for chief complaint of lightheadedness and anxiety. Patient appears rather nervous at this time, she states she had a brief episode of lightheadedness, that she states that she shook it off and only lasted about a minute, and felt lightheaded, she states that this occurred around 11 AM, she d id not pass out, she states shortly afterwards she started feeling very anxious and panicking, she was sitting when this occurred. She has a history of anxiety, not currently taking any medications, she is had episodes like this in the past, but last time she had one she found out she was was unable to take the prescribed anxiety medication. She gets "panicky" at times, and she gets tearful and very worked up when this occurs. At this time she denies having any chest pain, shortness of breath, difficulty breathing she is feeling better, but still having anxious feelings. Denies any suicidal homicidal ideations. Denies any hallucinations. Past Medical History: Anxiety, hypertension Past Surgical History: x2 Social History: Denies tobacco, alcohol or drug use. Family History: Reviewed and noncontributory for presenting illness Allergies: Reviewed, see documented allergy list. REVIEW OF SYSTEMS: Other than noted above, the 12 point review of systems was reviewed with the patient and were negative, all pertinent findings are included in the HPI. PHYSICAL EXAMINATION: Vital signs reviewed, nursing noted reviewed. GENERAL: Patient is tearful, appears anxious on exam, but no immediate distress, no respiratory distress HEAD: Atraumatic, normocephalic. EYES: Eyes appear normal, extraocular movements intact, sclera anicteric, conjunctiva are normal. ENT: nares patent, oropharynx clear without exudates. Moist mucous membranes. NECK: Normal range of motion, supple without lymphadenopathy LUNGS: Breath sounds clear to auscultation bilaterally and equal. No wheezes rales or rhonchi. HEART: Regular rate and rhythm without murmurs ABDOMEN: Soft, nontender, normoactive bowel sounds. No rebound, guarding, or rigidity. No masses appreciated. EXTREMITIES: Nontender, good range of motion, no pitting or edema. NEUROLOGICAL: No focal neurological deficits. Moves all extremities spontaneously Motor and sensory grossly intact on exam. PSYCH: Tearful, anxious appearing, but answers questions appropriately SKIN: Warm, Dry, normal turgor, no rashes or lesions noted on exposed skin TRAVEL OUTSIDE OF THE [place] IN LAST 30 DAYS: No - Related Data Allergies/Adverse Reactions: No Known Allergies Allergy (Verified 07/16/18 19:17) Past Medical History - Social History Smoking Status: Unknown if Ever Smoked Family History: Reviewed & Not Pertinent Patient has suicidal ideation: No Patient has homicidal ideation: No - Past Medical History Cardiac Medical History: Reports: Hx Hypertension Renal/ Medical History: Denies: Hx Peritoneal Dialysis Past Surgical History: Reports: Hx Section - Immunizations Hx Diphtheria, Pertussis, Tetanus Vaccination: Yes Physical Exam - Vital signs Vitals: Temp Pulse Resp BP Pulse Ox 98.4 F 108 H 17 160/115 H 100 11/09/18 12:16 11/09/18 12:16 11/09/18 12:16 11/09/18 12:16 11/09/18 12:16 Course - Re-evaluation Re-evalutation: Patient seen and examined vital signs reviewed. Laboratory data and/or imaging were ordered as appropriate for the patient's presenting symptoms and complaint, with consideration of any critical or life threatening conditions that may be associated with their obtained history and exam as noted above. Patient was treated with Atarax 10 mg Results were reviewed when available and demonstrated unremarkable blood work, only mild anemia, negative hCG The patient was re-evaluated and was stable Evaluation was most consistent with anxiety, patient will be started on BuSpar 5 mill grams twice daily, advised follow-up with mental health services, as well as primary care, her blood pressure was elevated and she was advised that she needs to have this rechecked, and possibly have additional medication started if needed. Results were discussed with the patient at this point, after careful consideration I feel that that patient can be discharged from the emergency department, the patient was educated treatments and reasons to return to the emergency department based on their presumed diagnosis as noted above, they were advised to followup with a primary care physician in 2-3 days. Patient was agreeable to plan of care. *Note is created using voice recognition software and may contain spelling, syntax or grammatical errors. Laboratory 11/09/18 11/09/18 11/09/18 13:00 13:00 13:00 WBC 11.8 H RBC 4.35 Hgb 11.0 L Hct 34.2 L MCV 79 L MCH 25.3 L MCHC 32.1 RDW 15.8 H Plt Count 335 Seg Neutrophils % 66.0 Lymphocytes % 26.4 Monocytes % 5.7 Eosinophils % 1.2 Basophils % 0.7 Absolute Neutrophils 7.8 Absolute Lymphocytes 3.1 Absolute Monocytes 0.7 Absolute Eosinophils 0.1 Absolute Basophils 0.1 Sodium Cancelled Potassium Cancelled Chloride Cancelled Carbon Dioxide Cancelled Anion Gap Cancelled BUN Cancelled Creatinine Cancelled Est GFR ( Amer) Cancelled Est GFR (Non-Af Amer) Cancelled Glucose Cancelled Calcium Cancelled Total Bilirubin Cancelled Direct Bilirubin Cancelled Neonat Total Bilirubin Cancelled Neonat Direct Bilirubin Cancelled Neonat Indirect Bili Cancelled AST Cancelled ALT Cancelled Alkaline Phosphatase Cancelled Troponin I Cancelled Total Protein Cancelled Albumin Cancelled Urine Color Urine Appearance Urine pH Ur Specific Roscoe Urine Protein Urine Glucose (UA) Urine Ketones Urine Blood Urine Nitrite Urine Bilirubin Urine Urobilinogen Ur Leukocyte Esterase Urine WBC (Auto) Urine RBC (Auto) Squamous Epi Cells Auto Urine Mucus (Auto) Urine Ascorbic Acid Urine HCG, Qual 11/09/18 11/09/18 11/09/18 13:00 15:10 15:10 WBC RBC Hgb Hct MCV MCH MCHC RDW Plt Count Seg Neutrophils % Lymphocytes % Monocytes % Eosinophils % Basophils % Absolute Neutrophils Absolute Lymphocytes Absolute Monocytes Absolute Eosinophils Absolute Basophils Sodium 137.5 Potassium 4.2 Chloride 103 Carbon Dioxide 26 Anion Gap 9 BUN 11 Creatinine 0.52 Est GFR ( Amer) > 60 Est GFR (Non-Af Amer) > 60 Glucose 83 Calcium 9.2 Total Bilirubin 0.4 Direct Bilirubin 0.3 Neonat Total Bilirubin Not Reportable Neonat Direct Bilirubin Not Reportable Neonat Indirect Bili Not Reportable AST 22 ALT 10 Alkaline Phosphatase 100 Troponin I < 0.012 Total Protein 7.6 Albumin 4.2 Urine Color YELLOW Urine Appearance CLOUDY Urine pH 6.0 Ur Specific Roscoe 1.019 Urine Protein NEGATIVE Urine Glucose (UA) NEGATIVE Urine Ketones NEGATIVE Urine Blood NEGATIVE Urine Nitrite NEGATIVE Urine Bilirubin NEGATIVE Urine Urobilinogen NEGATIVE Ur Leukocyte Esterase NEGATIVE Urine WBC (Auto) 4 Urine RBC (Auto) 2 Squamous Epi Cells Auto 33 Urine Mucus (Auto) MOD Urine Ascorbic Acid NEGATIVE Urine HCG, Qual NEGATIVE Chest X-Ray 11/09/18 12:56 IMPRESSION: NO ACUTE FINDINGS. - Vital Signs Vital signs: Temp Pulse Resp BP Pulse Ox 98.4 F 108 H 17 160/115 H 100 11/09/18 12:16 11/09/18 12:16 11/09/18 12:16 11/09/18 12:16 11/09/18 12:16 - Laboratory Result Diagrams: 11/09/18 13:00 11/09/18 15:10 Laboratory results interpreted by me: 11/09/18 13:00 WBC 11.8 H Hgb 11.0 L Hct 34.2 L MCV 79 L MCH 25.3 L RDW 15.8 H - EKG Interpretation by Me Additional EKG results interpreted by me: EKG demonstrates sinus rhythm with a ventricular rate of 90 bpm, slight left axis deviation, no ST elevation, compared with prior EKG 03/05/2018, without significant change. Discharge - Discharge Clinical Impression: Anxiety Hypertension Qualifiers: Hypertension type: unspecified Qualified Code(s): I10 - Essential (primary) hypertension Condition: Stable Disposition: HOME, SELF-CARE Instructions: Anxiety ([facility]) Prescriptions: Buspirone HCl [Buspar 5 mg Tablet] 1 tab PO BID #30 tab Forms: Elevated Blood Pressure [facility] [NO [facility]AL MD] - Follow up in 3-5 days [facility] [Provider Group] - Follow up in 3-5 days [facility] [Provider Group] - Follow up in 3-5 days
[2018-11-09] MEDS ORDERED: HYDROXYZINE HCL 10 MG TABLET PO ONE (15:02)
[2018-11-09 15:44] LABS: ALBUMIN 4.2 g/dL (3.5-5.0); ALKALINE PHOSPHATASE 100 U/L (38-126); ANION GAP 9 (5-19); ASPARTATE AMINO TRANSFERASE 22 U/L (14-36); BILIRUBIN,DIRECT 0.3 mg/dL (0.0-0.4); BILIRUBIN,TOTAL 0.4 mg/dL (0.2-1.3); BLOOD UREA NITROGEN 11 mg/dL (7-20); CALCIUM 9.2 mg/dL (8.4-10.2); CARBON DIOXIDE 26 mmol/L (22-30); CHLORIDE 103 mmol/L (98-107); GLUCOSE 83 mg/dL (75-110); POTASSIUM 4.2 mmol/L (3.6-5.0); TOTAL PROTEIN 7.6 g/dL (6.3-8.2)
[2018-11-09 16:33] VITALS: BP 180/97
--- NOTE | 2018-11-10 00:36 | EKG REPORT ---
SEVERITY:- BORDERLINE ECG - SINUS RHYTHM BORDERLINE T ABNORMALITIES, ANT-LAT LEADS : Confirmed by: Jamil Mirza 10-Nov-2018 00:35:11
== END 2018-11-09 16:32 | disposition home or self-care (01) ==
LOC: ER 12:04
DX: F41.9 Anxiety disorder, unspecified (principal); I10 Essential (primary) hypertension; R42 Dizziness and giddiness
CPT/HCPCS: 36415; 71046; 80053; 81001; 81025; 84484; 85025; 93005; 93010; 99284

== ENCOUNTER 2018-12-27 18:02 | Emergency (ER) | payer SELFPAY ==
[2018-12-27 18:35] VITALS: BP 156/98
--- NOTE | 2018-12-27 18:39 | ER Document Report ---
ED Medical Screen (RME) - General Chief Complaint: High Blood Pressure Stated Complaint: HIGH BLOOD PRESSURE Time Seen by Provider: 12/27/18 18:33 Primary Care Provider: OUMOU ANTUNEZ MD [HONORARY] - Follow up as needed Mode of Arrival: Ambulatory Information source: Patient Notes: 33-year-old female presented to ED for plan of blood pressure. She states she does have high blood pressure and she is out of her medications. She states she does have an appointment on but does not want to wait that long for her blood pressure medicine. She states she went to the pharmacy to see if she could get an interim prescription but the last time she went that she was so he would not give her into a prescription until she can see the doctor on . Patient is alert oriented respirations regular and unlabored speaking in full sentences her blood pressure is 156/98 her pulse is 86 and O2 sat is 100 at this time. I rechecked a mile while I was doing her assessment. She states she takes Procardia 30 mg once in the morning once at night ran out on Saturday and she is not comfortable wait until to get a prescription. I will write her prescription for 1 week of Procardia I have checked and that is what her last medications were in the computer. She states she is not having any symptoms at this time she is just scared to wait that long. TRAVEL OUTSIDE OF THE [place] IN LAST 30 DAYS: No - HPI Onset: Other Quality of pain: No pain Severity: None Pain Level: Denies Associated Symptoms: None Exacerbated by: Denies Relieved by: Denies Similar symptoms previously: Yes Recently seen / treated by doctor: No - Related Data Smoking: Non-smoker Frequency of alcohol use: Occasional Drug Abuse: None Allergies/Adverse Reactions: No Known Allergies Allergy (Verified 12/27/18 18:21) Past Medical History - General Information source: Patient - Social History Cigarette use (# per day): No Chew tobacco use (# tins/day): No Frequency of alcohol use: Occasional Drug Abuse: None Occupation: [employer] Lives with: Family Family history: Reviewed & Not Pertinent - Past Medical History Cardiac Medical History: Reports: Hx Hypertension Pulmonary Medical History: Reports: None EENT Medical History: Reports: None Neurological Medical History: Reports: None Endocrine Medical History: Reports: None Renal/ Medical History: Reports: None Malignancy Medical History: Reports: None GI Medical History: Reports: None Musculoskeltal Medical History: Reports None Skin Medical History: Reports None Psychiatric Medical History: Reports: None Traumatic Medical History: Reports: None Infectious Medical History: Reports: None Past Surgical History: Reports: Hx Section - 2 - Immunizations Hx Diphtheria, Pertussis, Tetanus Vaccination: Yes Review of Systems - Review of Systems Constitutional: No symptoms reported EENT: No symptoms reported Cardiovascular: No symptoms reported Respiratory: No symptoms reported Gastrointestinal: No symptoms reported Genitourinary: No symptoms reported Female Genitourinary: No symptoms reported Musculoskeletal: No symptoms reported Skin: No symptoms reported Hematologic/Lymphatic: No symptoms reported Neurological/Psychological: No symptoms reported -: Yes All other systems reviewed and negative Physical Exam - Vital signs Vitals: Temp Pulse Resp BP Pulse Ox 97.8 F 102 H 18 155/124 H 100 12/27/18 18:09 12/27/18 18:09 12/27/18 18:09 12/27/18 18:09 12/27/18 18:09 Interpretation: Normal - General General appearance: Appears well, Alert - HEENT Head: Normocephalic, Atraumatic Eyes: Normal Pupils: PERRL - Respiratory Respiratory status: No respiratory distress Chest status: Nontender Breath sounds: Normal Chest palpation: Normal - Cardiovascular Rhythm: Regular Heart sounds: Normal auscultation Murmur: No - Abdominal Inspection: Normal Distension: No distension Bowel sounds: Normal Tenderness: Nontender Organomegaly: No organomegaly - Back Back: Normal, Nontender - Extremities General upper extremity: Normal inspection, Nontender, Normal color, Normal ROM, Normal temperature General lower extremity: Normal inspection, Nontender, Normal color, Normal ROM, Normal temperature, Normal weight bearing. No: Juju's sign - Neurological Neuro grossly intact: Yes Cognition: Normal Orientation: AAOx4 Marco A Coma Scale Eye Opening: Spontaneous Marco A Coma Scale Verbal: Oriented Marco A Coma Scale Motor: Obeys Commands Marco A Coma Scale Total: 15 Speech: Normal Motor strength normal: LUE, RUE, LLE, RLE Sensory: Normal - Psychological Associated symptoms: Normal affect, Normal mood - Skin Skin Temperature: Warm Skin Moisture: Dry Skin Color: Normal Course - Re-evaluation Re-evalutation: 12/27/18 18:49 Patient was blood pressure medicine Procardia 30 mg regular release she cannot get into see her doctor until next week so I have prescribed her r a week's worth of Procardia 30 mg twice daily. I have called into [facility] on [address] and she will go there to pick it up. Patient verbalized understanding and agreement with treatment plan patient has been discharged home. - Vital Signs Vital signs: Temp Pulse Resp BP Pulse Ox 97.8 F 86 18 156/98 H 100 12/27/18 18:09 12/27/18 18:35 12/27/18 18:09 12/27/18 18:35 12/27/18 18:35 Doctor's Discharge - Discharge Clinical Impression: Medication refill HTN (hypertension) Qualifiers: Hypertension type: unspecified Qualified Code(s): I10 - Essential (primary) hypertension Condition: Stable Disposition: HOME, SELF-CARE Additional Instructions: HIGH BLOOD PRESSURE REQUIRING TREATMENT: Your blood pressure is high. This is called "hypertension." Today's reading was ____156/98 (normal is less than 140/90). Your history and exam suggest that this is not a temporary problem. You need treatment of your blood pressure. If left untreated, high blood pressure greatly increases your risk of heart attack and stroke. Please don't ignore this problem. If you have blood pressure medicine but aren't using it regularly, start taking it again. Some simple things you can do to help are: Get some aerobic exercise for at least 20 minutes on a daily basis. (See your doctor before beginning any new exercise program.) Eat a low-fat diet. Lose excess weight. Avoid salty foods and avoid adding salt to any of the foods you eat. Avoid diet pills, decongestants, "energizing" herbs, and other medicines that elevate blood pressure. There are many different medicines that treat blood pressure. If your medication causes unpleasant side effects, call your doctor. There are others you can try. Treating hypertension is a life-long investment in your health. CALCIUM CHANNEL BLOCKERS: A medication of the calcium channel valeria type has been prescribed for you. Examples of this type of medicine are Calan, Isoptin, Procardia, and Cardizem. These medicines have a variety of uses, including prevention of angina attacks, treatment of blood pressure, regulation of certain heart rhythm problems, and prevention of migraine headaches. Calcium channel blockers work by interfering with the flow of calcium in cell membranes. This results in dilation of blood vessels, and slowing of electrical conduction in the heart. A slight dizziness (due to a fall in blood pressure) may occur with the first dose, and sometimes even with later doses. This may make you prone to dizziness if you stand up suddenly. Call the doctor if lightheadedness is severe, or if you develop palpitations, shortness of breath, or any other new or alarming symptoms. FOLLOW-UP CARE: If you have been referred to a physician for follow-up care, call the physicians office for an appointment as you were instructed or within the next two days. If you experience worsening or a significant change in your symptoms, notify the physician immediately or return to the Emergency Department at any time for re-evaluation. Forms: Elevated Blood Pressure Referrals: OUMOU ANTUNEZ MD [HONORARY] - Follow up as needed
== END 2018-12-27 18:49 | disposition home or self-care (01) ==
LOC: ER 18:02
DX: I10 Essential (primary) hypertension (principal); Z76.0 Encounter for issue of repeat prescription
CPT/HCPCS: 99283